=== PATIENT | female | born 1985 | race Caucasian/White ===

== ENCOUNTER 2021-02-11 10:09 | Inpatient (IN) ==
[2021-02-11] MEDS ORDERED: IOPAMIDOL 100 ML BOTTLE IV ONE (10:10)
[2021-02-11] MEDS ORDERED: 0.9 % SODIUM CHLORIDE 1,000 ML IV ONE (10:20)
[2021-02-11] MEDS ORDERED: ACETAMINOPHEN 325 MG TABLET PO ONE ×2 (10:26→17:34)
--- NOTE | 2021-02-11 10:26 | Emergency Department Note ---
SOB HPI General Chief Complaint: Shortness of Breath/Dyspnea Stated Complaint: shortness of breath, low O2 sats Time Seen by Provider: 02/11/21 10:20 Source: patient Mode of arrival: wheelchair Limitations: no limitations History of Present Illness HPI Narrative: 35-year-old female with past medical history of migraines presenting with shortness of breath. She was seen in the ED 2 days ago for shortness of breath and was diagnosed with bilateral pneumonia. Her rapid Covid test was negative at that time. Her vital signs were stable and she was discharged on antibiotics. She states yesterday she was doing better but today the shortness of breath got significantly worse. She endorses a nonproductive cough, chest pain when taking a deep breath, and chills. Denies neck pain, leg swelling, hemoptysis, abdominal pain, vomiting, or dysuria. She has received both doses of the Moderna COVID vaccine, the most recent dose given January 14. Non-smoker. No oral contraceptive use, she has a Mirena IUD. Denies any prior history of pulmonary problems. No history of DVT or PE. No prior cardiac history. She was satting in the 40s on room air on arrival to the ED. Related Data Home Medications Medication Instructions Recorded Confirmed progesterone micronized 200 mg 200 mg PO QHS 09/26/20 02/11/21 capsule testosterone 30 mg/actuation (1.5 1 pump TOPICAL QDAY 09/26/20 02/11/21 mL) transderm solution metered pump thyroid (pork) 15 mg tablet 40 mg PO QDAY tab 09/26/20 02/11/21 budesonide 9 mg capsule,extended 9 mg PO QAM 02/09/21 02/11/21 release mesalamine 1.2 gram tablet,delayed 1.2 g PO QID tab 02/09/21 02/11/21 release Previous Rx's Medication Instructions Recorded buspirone 10 mg tablet 10 mg PO BID PRN #30 tab 09/26/20 hydrocortisone acetate 25 mg 25 mg VT BID PRN #12 ea 09/26/20 rectal suppository escitalopram oxalate 20 mg tablet See Rx Instructions .ROUTE 11/28/20 .COMPLEX #30 tab hydrocodone-acetaminophen 1 tab PO Q4H PRN #20 tab 12/03/20 ondansetron HCl [Zofran] 4 mg PO Q8H PRN #20 tab 12/03/20 zolpidem 5 mg tablet 5 mg PO QHS PRN #60 tab 02/06/21 amoxicillin-pot clavulanate 1 tab PO BID 10 Days #20 tab 02/09/21 [Augmentin] azithromycin [Zithromax Z-Renny] 250 mg PO QDAY #6 tab 02/09/21 Allergies Allergy/AdvReac Type Severity Reaction Status Date / Time No Known Drug Allergies Allergy Verified 02/11/21 11:12 Review of Systems ROS ROS Narrative: Narrative: Constitutional: Reports fever and chills Eyes: Denies vision change ENT ED: Denies ear pain and throat pain Cardiovascular: Reports chest pain; Denies palpitations and edema Respiratory: Reports shortness of breath and cough; Denies hemoptysis Gastrointestinal: Denies abdominal pain, nausea and vomiting Genitourinary: Denies dysuria and frequency Musculoskeletal: Denies back pain and joint swelling Integumentary: Denies rash and lesions Neurological: Denies headache and weakness Psychiatric: Denies anxiety and depression Endocrine: Denies fatigue and heat or cold intolerance Hematological/Lymphatic: Denies easy bleeding and easy bruising PFSH Narrative Patient History Narrative: Narrative: Medical/Surgical/Family History All Active Problems (Updated 02/11/21 @ 16:34 by Yeison Esparza MD) Bilateral pneumonia (Acute) Pneumonia (Acute) Tachycardia (Acute) Kidney stone (Acute) Folliculitis (Acute) Bleeding internal hemorrhoids (Acute) Headache (Acute) Nausea (Acute) Close exposure to COVID-19 virus (Acute) Anxiety (Chronic ~07/2014) Frequent UTI (Chronic) Encounter for surveillance of contraceptive pills (Chronic) Need vaccination-viral disease (Chronic) Symptomatic tachycardia (Chronic) Hyperlipidemia (Chronic) Chronic migraine without aura, intractable, with status migrainosus (Chronic) Well adult exam (Chronic) Hypothyroidism (Chronic) Fatigue (Chronic) Insomnia (Chronic) Depressed (Chronic) Nevus, atypical (Chronic) Weight gain (Chronic) Encounter for screening for malignant neoplasm of cervix (Chronic) Bladder spasm (Chronic) Candidiasis of vulva and vagina (Chronic) Chronic sinusitis, unspecified (Chronic) SOB (shortness of breath) (Chronic) Acute pneumonia (Chronic) Bronchospasm (Chronic) Medical History Acute pneumonia Anxiety (~07/2014) Bladder spasm Bronchospasm Candidiasis of vulva and vagina Chronic migraine without aura, intractable, with status migrainosus Chronic sinusitis, unspecified Depressed Encounter for screening for malignant neoplasm of cervix Encounter for surveillance of contraceptive pills Fatigue Frequent UTI Hyperlipidemia Hypothyroidism Insomnia Need vaccination-viral disease Nevus, atypical SOB (shortness of breath) Symptomatic tachycardia Viral syndrome Weight gain Well adult exam Surgical History History of tonsillectomy and adenoidectomy Family History Father Asthma H/O ETOH abuse Grandfather Cancer Social History Smoking Status: Never smoker Alcohol Intake Frequency: holiday/special occasion only Substance Use: does not use Exam Narrative Narrative: Narrative: General Limitations: no limitations General appearance: Present alert and other (in moderate respiratory distress) Head Head: Present atraumatic and normocephalic Eye Eye: Present normal appearance, PERRL and EOMI; Absent scleral icterus and conjunctival injection ENT ENT: Present normal oropharynx and mucous membranes moist Neck Neck: Present full ROM and trachea midline; Absent meningismus, lymphadenopathy and thyromegaly Chest Chest: Present symmetric chest wall rise Respiratory Respiratory: Present respiratory distress and other (coarse BS bilaterally); Absent wheezes, stridor, accessory muscle use and prolonged expiratory phase Cardiovascular Cardiovascular: Present normal rhythm and tachycardia; Absent systolic murmur and diastolic murmur Adbominal Abdominal: Present soft; Absent distention, tenderness, guarding, rebound, rigidity, organomegaly and mass Extremities Extremities: Absent pedal edema, pretibial edema and calf tenderness Back Back: Absent CVA tenderness (R), CVA tenderness (L) and spinous process tenderness Neurological Neurological: Present alert and oriented X3 Psychiatric Psychiatric: Present normal affect and normal mood Skin Skin: Present warm (WNL) and dry Course Consultations Consultation #1: Dr. Blankenship, hospitalist Time: 15:20 Vital Signs Vital signs: Vital Signs Temperature 101.4 F H 02/11/21 10:10 Pulse Rate 128 H 02/11/21 10:10 Respiratory Rate 50 H 02/11/21 10:10 Blood Pressure 118/82 02/11/21 10:10 Pulse Oximetry (%) 45 L 02/11/21 10:10 Temperature 98.9 F 02/11/21 16:04 Pulse Rate 114 H 02/11/21 16:04 Respiratory Rate 47 H 02/11/21 16:04 Blood Pressure 108/77 02/11/21 16:04 Pulse Oximetry (%) 93 02/11/21 16:04 MDM MDM Narrative Medical decision making narrative: 35-year-old female presenting with shortness of breath. Hypoxic, tachypneic, and in moderate respiratory distress on arrival. She was placed on O2 via facemask with improvement in sats. She is febrile and tachycardic. Will obtain labs, blood cultures, chest x-ray, and CT chest. We will continue to monitor. Labs notable for hypokalemia which was repleted. CT chest shows severe bilateral pneumonia without evidence of PE. Rapid Covid test is negative. Blood culture sent. Patient's oxygen saturations are stable on O2 via facemask. 1 g IV Rocephin and 500 mg IV azithromycin ordered. Patient endorsed to Dr. Blankenship, hospitalist, for admission. Lab Data Lab results reviewed: Yes I reviewed the patient's lab results. Result diagrams: 02/11/21 10:53 02/11/21 10:53 Labs: Lab Results 02/11/21 02/11/21 02/11/21 Range/Units 10:38 10:52 10:52 WBC (4.5-11.0) K/mcL RBC (3.59-5.38) M/mcL Hgb (11.2-15.7) g/dL Hct (34.1-44.9) % MCV (80.0-100.0) fL MCH (26.0-34.0) pg MCHC (31.0-36.0) g/dL RDW (11.5-14.5) % Plt Count (140-440) K/mcL MPV (7.4-10.4) fL Seg Neutrophils % (38-78) % Band Neutrophils % (0-10) % Lymphocytes % (15-49) % Monocytes % (Manual) (1-12) % Platelet Estimate (Normal) RBC Morphology (Normal) PT (11.9-14.5) sec INR (0.9-1.1) APTT (20.0-37.0) sec VBG Lactic Acid 1.5 (0.5-2.0) mmol/L Sodium (133-145) mmol/L Potassium (3.3-5.1) mmol/L Chloride (96-108) mmol/L Carbon Dioxide (22-30) mmol/L Anion Gap (8.0-16.0) BUN (6-20) mg/dL Creatinine (0.6-1.1) mg/dL GFR Calculation Glucose (70-105) mg/dL Calcium (8.6-10.4) mg/dL Magnesium (1.6-2.5) mg/dL Total Bilirubin (0.1-1.0) mg/dL AST (<32) U/L ALT (<40) U/L Alkaline Phosphatase (39-117) U/L Troponin T < 0.01 (<0.03) ng/mL NT-Pro-B Natriuret Pep (<125.0) pg/mL Total Protein (5.9-8.4) gm/dL Albumin (3.2-5.2) gm/dL Globulin (2.2-3.7) gm/dL Albumin/Globulin Ratio (1.0-2.3) Procalcitonin 0.68 H (<0.10) ng/mL 02/11/21 02/11/21 02/11/21 Range/Units 10:53 10:53 10:53 WBC 7.5 (4.5-11.0) K/mcL RBC 3.93 (3.59-5.38) M/mcL Hgb 12.7 (11.2-15.7) g/dL Hct 35.9 (34.1-44.9) % MCV 91.3 (80.0-100.0) fL MCH 32.3 (26.0-34.0) pg MCHC 35.4 (31.0-36.0) g/dL RDW 11.9 (11.5-14.5) % Plt Count 176 (140-440) K/mcL MPV 10.5 H (7.4-10.4) fL Seg Neutrophils % 72 (38-78) % Band Neutrophils % 24 H (0-10) % Lymphocytes % 1 L (15-49) % Monocytes % (Manual) 3 (1-12) % Platelet Estimate Normal (Normal) RBC Morphology Normal (Normal) PT 14.4 (11.9-14.5) sec INR 1.1 (0.9-1.1) APTT 39.7 H (20.0-37.0) sec VBG Lactic Acid (0.5-2.0) mmol/L Sodium 136 (133-145) mmol/L Potassium 2.9 L* (3.3-5.1) mmol/L Chloride 103 (96-108) mmol/L Carbon Dioxide 18 L (22-30) mmol/L Anion Gap 15.0 (8.0-16.0) BUN 12 (6-20) mg/dL Creatinine 0.6 (0.6-1.1) mg/dL GFR Calculation 118 Glucose 116 H (70-105) mg/dL Calcium 8.4 L (8.6-10.4) mg/dL Magnesium 1.8 (1.6-2.5) mg/dL Total Bilirubin 0.6 (0.1-1.0) mg/dL AST 24 (<32) U/L ALT 21 (<40) U/L Alkaline Phosphatase 77 (39-117) U/L Troponin T (<0.03) ng/mL NT-Pro-B Natriuret Pep 2000.0 H (<125.0) pg/mL Total Protein 6.1 (5.9-8.4) gm/dL Albumin 3.6 (3.2-5.2) gm/dL Globulin 2.5 (2.2-3.7) gm/dL Albumin/Globulin Ratio 1.4 (1.0-2.3) Procalcitonin (<0.10) ng/mL ED POC Tests ED POC Tests: NOLAN - SARS Antigen Negative HCG POC Results Negative Radiology Data Radiology results reviewed: Yes I reviewed the patient's radiology results. Radiology results narrative: Ordering Physician: Yeison Esparza M.D. Date of Service: 02/11/21 Procedure(s): CT angio chest Accession Number(s): [id number] History: Dyspnea, hypoxia, pneumonia TECHNIQUE: Following injection of intravenous nonionic contrast the chest was imaged during the pulmonary arterial phase of 2.5 mm intervals. Sagittal, coronal and axial MIPS images were created. The radiation exposure was limited using dose reduction technology. FINDINGS: The pulmonary arteries are normal without evidence of emboli. There are severe widespread consolidating alveolar infiltrates throughout both lungs. This has a random mosaic distribution. There are numerous air bronchograms. There is relative sparing of the lung bases. The greatest consolidation is around the mariel. Very small bilateral layering pleural effusions are present. There may be a few reactive lymph nodes in the mariel bilaterally. No enlarged mediastinal lymph node is seen. The trachea and bronchi are normal with no mucus plugging or evidence of a mass. The heart is normal in size and contour. Aorta is normal in caliber. IMPRESSION: Severe widespread bilateral pneumonia No evidence pulmonary emboli Small layering bilateral pleural effusions Dr. Esparza was called with the report Interpreted and Authenticated by: Magdaleno Aquino 02/11/21 EKG Data EKG #1: EKG attestation: Yes I reviewed and interpreted this EKG. and Yes There are no EKG findings of acute coronary syndrome EKG results narrative: Sinus tachycardia at [address] elevation or depression. No T wave inversions. Interpretation: no acute changes Pulse Oximetry Data Pulse Ox %: 45 Interpretation: On room air. Placed on O2 via facemask with improvement to 94%. Discharge Plan Patient/Caregiver Discharge Instructions Pt seen by [employer] MACHINE/PA only: No Clinical Impression: Bilateral pneumonia Patient Disposition: Xfer As Inpt ([facility]) Condition: Fair Discharge Date/Time: 02/11/21 16:16
[2021-02-11 11:52] LABS: Hematocrit 35.9 % (34.1-44.9); Hemoglobin 12.7 g/dL (11.2-15.7); Mean Cell Volume 91.3 fL (80.0-100.0); Mean Corpuscular HGB Conc 35.4 g/dL (31.0-36.0); Mean Platelet Volume 10.5 fL (7.4-10.4); Platelet Count 176 K/mcL (140-440); RBC 3.93 M/mcL (3.59-5.38); Red Cell Distribution Width 11.9 % (11.5-14.5); WBC 7.5 K/mcL (4.5-11.0)
[2021-02-11] MEDS ORDERED: cefTRIAXone 1 GM VIAL IV ONE (12:37)
[2021-02-11] MEDS ORDERED: AZITHROMYCIN 500 MG in DEXTROSE 5% IN WATER 250 ML IV ONE (12:37)
[2021-02-11 13:08] LABS: INR 1.1 (0.9-1.1); Partial Thromboplastin Time 39.7 sec (20.0-37.0); Prothrombin Time 14.4 sec (11.9-14.5)
[2021-02-11 13:10] LABS: ALT/SGPT 21 U/L (<40); AST/SGOT 24 U/L (<32); Albumin 3.6 gm/dL (3.2-5.2); Albumin/Globulin Ratio 1.4 (1.0-2.3); Alkaline Phosphatase 77 U/L (39-117); Bilirubin,Total 0.6 mg/dL (0.1-1.0); Blood Urea Nitrogen 12 mg/dL (6-20); Calcium 8.4 mg/dL (8.6-10.4); Carbon Dioxide 18 mmol/L (22-30); Chloride 103 mmol/L (96-108); Globulin 2.5 gm/dL (2.2-3.7); Glomerular Filtration Rate 118; Glucose 116 mg/dL (70-105)
[2021-02-11] MEDS ORDERED: POTASSIUM CHLORIDE 20 MEQ in DEXTROSE 5% IN WATER 250 ML IV ONE (13:13)
[2021-02-11 13:32] LABS: Band Neutrophils % 24 % (0-10); Lymphocytes % 1 % (15-49); Monocytes % (Manual) 3 % (1-12); Platelet Estimate NORMAL (Normal); RBC Morphology NORMAL (Normal); Segmented Neutrophils % 72 % (38-78)
--- NOTE | 2021-02-11 14:54 | Cat Scan Report ---
History: Dyspnea, hypoxia, pneumonia TECHNIQUE: Following injection of intravenous nonionic contrast the chest was imaged during the pulmonary arterial phase of 2.5 mm intervals. Sagittal, coronal and axial MIPS images were created. The radiation exposure was limited using dose reduction technology. FINDINGS: The pulmonary arteries are normal without evidence of emboli. There are severe widespread consolidating alveolar infiltrates throughout both lungs. This has a random mosaic distribution. There are numerous air bronchograms. There is relative sparing of the lung bases. The greatest consolidation is around the mairel. Very small bilateral layering pleural effusions are present. There may be a few reactive lymph nodes in the mariel bilaterally. No enlarged mediastinal lymph node is seen. The trachea and bronchi are normal with no mucus plugging or evidence of a mass. The heart is normal in size and contour. Aorta is normal in caliber. IMPRESSION: Severe widespread bilateral pneumonia No evidence pulmonary emboli Small layering bilateral pleural effusions Dr. Esparza was called with the report Interpreted and Authenticated by: Magdaleno Aquino 02/11/21
[2021-02-11] MEDS ORDERED: LACTULOSE 20 GM/30 ML ORAL.SOL PO PRN (16:24)
[2021-02-11] MEDS ORDERED: SENNOSIDES 1 TABLET PO PRN (16:24)
[2021-02-11] MEDS ORDERED: busPIRone 15 MG TABLET PO PRN (16:24)
[2021-02-11] MEDS ORDERED: ONDANSETRON 4 MG/2 ML VIAL IV PRN (16:24)
[2021-02-11] MEDS ORDERED: ZOLPIDEM 5 MG TABLET PO PRN (16:24)
[2021-02-11] MEDS ORDERED: LORazepam 2 MG/ML VIAL IV PRN ×2 (17:03→18:00)
[2021-02-11] MEDS ORDERED: LORazepam 2 MG/ML VIAL ONE (17:09)
[2021-02-11] MEDS: ACETAMINOPHEN 325 MG TABLET PO PRN (17:30)
[2021-02-11] MEDS ORDERED: REMDESIVIR 200 MG in 0.9 % SODIUM CHLORIDE 250 ML IV ONE (18:00)
[2021-02-11] MEDS ORDERED: DEXMEDETOMIDINE 400 MCG in PREMIX 1 BAG IV SCH (18:00)
[2021-02-11] MEDS: DEXMEDETOMIDINE 400 MCG in PREMIX 1 BAG IV SCH (18:05)
--- NOTE | 2021-02-11 18:13 | Internal Med History&Physical ---
HPI History of Present Illness Patient information: Note initiated : 02/11/21 at 6:13 pm Service Date, if different from initiated Date: [] Patient: Cheyanne Moody a 35 y/o F admitted on 02/11/21 for shortness of breath, low O2 sats. Chief Complaint: dyspnea History of present illness: Ms. Moody is a 35 year old F with a history of recently diagnosed ulcerative proctitis, history of COVID-19 last year, now fully vaccinated with her last dose early in January. She presents to the emergency department for the second time in 3 days with dyspnea. She was seen in the ER 2 days ago with shortness of breath, chest film showed bilateral pneumonias. She received IV fluids and antibiotics and was discharged on Augmentin and azithromycin. Covid rapid antigen as well as Ronald PCR were negative. She felt a bit better yesterday, but today was feeling worse and represents to the ED. Oxygen saturations were in the 50% range on room air, this improved with facemask and she was on a nonrebreather when I see her. Repeat evaluation in the ED showed significant bilateral groundglass opacities on CTA without pulmonary embolism. Radiograph redemonstrated bilateral infiltrates. White count was 7.5 (decreased from 15,002 days previously), but with a 24% bandemia. Sodium 136, potassium low at 2.9. Normal renal function. Procalcitonin elevated at 0.68. proBNP 2000 and lactate was normal. Repeat rapid antigen for influenza A and B and SARS-CoV-2 were negative. Repeat Ronald PCR was negative for SARS-CoV-2. Patient had been experiencing diarrhea as well as a generally nonproductive cough. She is becoming more dyspneic, particularly with exertion. She is complaining of a sore throat and headache along with chills and has had fever. She has anterior chest pain with coughing and hurts with touch to the chest wall. The patient is being admitted for further treatment of bilateral pneumonia, rule out COVID-19. Constitutional Constitutional: Present chills, fatigue, fever(s), headache(s), malaise and weakness EENT Eyes: Absent change in vision Nose, mouth and throat: Present headache(s), sinus pressure and sore throat Cardiovascular Cardiovascular: Present as per HPI Respiratory Respiratory: Present cough, dyspnea on exertion, pain on inspirtation and pain with cough; Absent hemoptysis and wheezing Gastrointestinal Gastrointestinal: Present diarrhea; Absent abdominal pain, nausea and vomiting Genitourinary Genitourinary: Absent dysuria Musculoskeletal Musculoskeletal: Absent joint swelling and myalgias Integumentary Integumentary: Absent rash Neurological Neurological: Present headache(s); Absent focal weakness Hematologic/Lymphatic Hematologic/Lymphatic: Absent easy bleeding and easy bruising PFSH PFSH All Active Problems (Updated 02/11/21 @ 20:09 by Kellie Blankenship MD) Ulcerative proctitis (Acute) Bilateral pneumonia (Acute) Pneumonia (Acute) Tachycardia (Acute) Kidney stone (Acute) Folliculitis (Acute) Bleeding internal hemorrhoids (Acute) Headache (Acute) Nausea (Acute) Close exposure to COVID-19 virus (Acute) Anxiety (Chronic ~07/2014) Frequent UTI (Chronic) Encounter for surveillance of contraceptive pills (Chronic) Need vaccination-viral disease (Chronic) Symptomatic tachycardia (Chronic) Hyperlipidemia (Chronic) Chronic migraine without aura, intractable, with status migrainosus (Chronic) Well adult exam (Chronic) Hypothyroidism (Chronic) Fatigue (Chronic) Insomnia (Chronic) Depressed (Chronic) Nevus, atypical (Chronic) Weight gain (Chronic) Encounter for screening for malignant neoplasm of cervix (Chronic) Bladder spasm (Chronic) Candidiasis of vulva and vagina (Chronic) Chronic sinusitis, unspecified (Chronic) SOB (shortness of breath) (Chronic) Acute pneumonia (Chronic) Bronchospasm (Chronic) Medical History (Updated 02/11/21 @ 20:09 by Kellie Blankenship MD) Acute pneumonia Anxiety (~07/2014) Bladder spasm Bronchospasm Candidiasis of vulva and vagina Chronic migraine without aura, intractable, with status migrainosus Chronic sinusitis, unspecified Depressed Encounter for screening for malignant neoplasm of cervix Encounter for surveillance of contraceptive pills Fatigue Frequent UTI Hyperlipidemia Hypothyroidism Insomnia Need vaccination-viral disease Nevus, atypical SOB (shortness of breath) Symptomatic tachycardia Ulcerative proctitis Weight gain Well adult exam Surgical History History of tonsillectomy and adenoidectomy Family History Father Asthma H/O ETOH abuse Grandfather Cancer Social History (Updated 09/26/20 @ 16:35 by Aramis Cerrato CMA) marital status: occupational status: employed occupation: RN at [employer] physical activity: other frequency: 5-6 times per week smoking status: Never smoker alcohol intake frequency: holiday/special occasion only substance use type: does not use seatbelt use: always MEDS/ALLERGIES Home Medications and Allergies Home Medications Medication Instructions Recorded Confirmed Type buspirone 10 mg tablet 10 mg PO BID PRN #30 tab 09/26/20 02/11/21 Rx hydrocortisone acetate 25 mg 25 mg SC BID PRN #12 ea 09/26/20 02/09/21 Rx rectal suppository progesterone micronized 200 mg 200 mg PO QHS 09/26/20 02/11/21 History capsule testosterone 30 mg/actuation (1.5 1 pump TOPICAL QDAY 09/26/20 02/11/21 History mL) transderm solution metered pump thyroid (pork) 15 mg tablet 40 mg PO QDAY tab 09/26/20 02/11/21 History escitalopram oxalate 20 mg tablet See Rx Instructions .ROUTE 11/28/20 02/11/21 Rx .COMPLEX #30 tab hydrocodone-acetaminophen 1 tab PO Q4H PRN #20 tab 12/03/20 02/09/21 Rx ondansetron HCl [Zofran] 4 mg PO Q8H PRN #20 tab 12/03/20 02/09/21 Rx zolpidem 5 mg tablet 5 mg PO QHS PRN #60 tab 02/06/21 02/11/21 Rx amoxicillin-pot clavulanate 1 tab PO BID 10 Days #20 tab 02/09/21 02/11/21 Rx [Augmentin] azithromycin [Zithromax Z-Renny] 250 mg PO QDAY #6 tab 02/09/21 02/11/21 Rx budesonide 9 mg capsule,extended 9 mg PO QAM 02/09/21 02/11/21 History release mesalamine 1.2 gram tablet,delayed 1.2 g PO QID tab 02/09/21 02/11/21 History release Allergies Allergy/AdvReac Type Severity Reaction Status Date / Time No Known Drug Allergies Allergy Verified 02/11/21 20:07 EXAM Constitutional Vitals: Temp Pulse Resp BP Pulse Ox 101.8 F H 79 46 H 125/73 77 L 02/11/21 18:00 02/11/21 18:00 02/11/21 18:00 02/11/21 18:00 02/11/21 18:00 GENERAL: Alert, oriented, in moderate respiratory distress. Cooperative, appears stated age. HEENT: Pupils equal at 3 mm, conjunctiva clear, no scleral icterus. Hearing grossly intact. Oropharynx with moist mucous membranes, tongue midline. NECK: Supple without meningismus, no thyromegaly RESPIRATORY: Bilateral crackles, respirations are moderately labored, no wheezes, no rhonchi CARDIOVASCULAR: Tachycardic, regular, no murmur gallop or rub. No peripheral edema. Carotid pulses 2+. GI: Abdomen soft, nontender, no guarding or rebound. Bowel sounds are present. MUSCULOSKELETAL: No joint erythema or swelling, normal range of motion in all extremities. SKIN: Intact, warm, dry. No lesions. Skin turgor normal. NEUROLOGIC: Cranial nerves II through XII grossly intact. Muscle mass normal. Strength 5/5 in the upper and lower extremities. Sensation intact to light touch bilaterally. PSYCHIATRIC: Alert, oriented x3, mood and affect are congruent to the current situation, normal insight. DATA Data Completed and Pending Labs: Labs from last 24 hours 02/11/21 02/11/21 02/11/21 16:43 16:43 10:53 WBC RBC Hgb Hct MCV MCH MCHC RDW Plt Count MPV Seg Neutrophils % Band Neutrophils % Lymphocytes % Monocytes % (Manual) Platelet Estimate RBC Morphology PT INR APTT VBG Lactic Acid Sodium Potassium Chloride Carbon Dioxide Anion Gap BUN Creatinine GFR Calculation Glucose Calcium Magnesium Total Bilirubin AST ALT Alkaline Phosphatase Troponin T NT-Pro-B Natriuret Pep Total Protein Albumin Globulin Albumin/Globulin Ratio Procalcitonin Ur L.pneumophila Ag Pending Mycoplasma pneumon IgG Pending Mycoplasma pneumon IgM Pending Ur Strep pneumoniae Ag Negative 02/11/21 02/11/21 02/11/21 10:53 10:53 10:53 WBC 7.5 RBC 3.93 Hgb 12.7 Hct 35.9 MCV 91.3 MCH 32.3 MCHC 35.4 RDW 11.9 Plt Count 176 MPV 10.5 H Seg Neutrophils % 72 Band Neutrophils % 24 H Lymphocytes % 1 L Monocytes % (Manual) 3 Platelet Estimate Normal RBC Morphology Normal PT 14.4 INR 1.1 APTT 39.7 H VBG Lactic Acid Sodium 136 Potassium 2.9 L* Chloride 103 Carbon Dioxide 18 L Anion Gap 15.0 BUN 12 Creatinine 0.6 GFR Calculation 118 Glucose 116 H Calcium 8.4 L Magnesium 1.8 Total Bilirubin 0.6 AST 24 ALT 21 Alkaline Phosphatase 77 Troponin T NT-Pro-B Natriuret Pep 2000.0 H Total Protein 6.1 Albumin 3.6 Globulin 2.5 Albumin/Globulin Ratio 1.4 Procalcitonin Ur L.pneumophila Ag Mycoplasma pneumon IgG Mycoplasma pneumon IgM Ur Strep pneumoniae Ag 02/11/21 02/11/21 02/11/21 10:52 10:52 10:38 WBC RBC Hgb Hct MCV MCH MCHC RDW Plt Count MPV Seg Neutrophils % Band Neutrophils % Lymphocytes % Monocytes % (Manual) Platelet Estimate RBC Morphology PT INR APTT VBG Lactic Acid 1.5 Sodium Potassium Chloride Carbon Dioxide Anion Gap BUN Creatinine GFR Calculation Glucose Calcium Magnesium Total Bilirubin AST ALT Alkaline Phosphatase Troponin T < 0.01 NT-Pro-B Natriuret Pep Total Protein Albumin Globulin Albumin/Globulin Ratio Procalcitonin 0.68 H Ur L.pneumophila Ag Mycoplasma pneumon IgG Mycoplasma pneumon IgM Ur Strep pneumoniae Ag Impressions Impressions: EKG: Sinus tachycardia 117, no acute injury pattern Imaging and Cardiology CT scan - chest: Status: image reviewed by me Additional comments: IMPRESSION: Severe widespread bilateral pneumonia No evidence pulmonary emboli Small layering bilateral pleural effusions A/P Narrative A/P Narrative: 35-year-old female prior history of Covid and fully vaccinated presents with several days of worsening dyspnea is found to have bilateral extensive pneumonia. Initially on nonrebreather, after arrival in the PCU, required escalation to HHFNC and subsequently BiPAP. 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, works as a nurse -Recent diagnosis of ulcerative proctitis, may be mildly immunosuppressed -After discussion of risks and benefits, will begin treatment for COVID-19: Remdesivir and dexamethasone -We will cover for bacterial pathogens, broad-spectrum as well as for atypicals Acute respiratory failure with hypoxia -Secondary to pneumonia/ARDS -Initially requiring nonrebreather, subsequently required HHFNC, then BiPAP -Significant anxiety associated with dyspnea, improved with Precedex Hypokalemia -Repleting Ulcerative proctitis -Diagnosed on colonoscopy early January -On oral budesonide and mesalamine Plan: Inpatient admission Respiratory support, currently on BiPAP Low threshold to intubate Remdesivir and dexamethasone, follow-up repeat SARS-CoV-2 PCR Vancomycin and cefepime for broad bacterial coverage Continue azithromycin started in the ED for atypical coverage Follow-up mycoplasma serology Follow-up Legionella urinary antigen Follow-up respiratory viral panels (for influenza, RSV, adenovirus, human metapneumovirus, parainfluenza viruses, rhinovirus) Guaifenesin and codeine for cough Replete potassium Trend white count and procalcitonin Trend CRP Continue budesonide and mesalamine Prophylaxis: Enoxaparin CODE STATUS: Full code Time Spent With Patient Time: Critical care time, managing acute respiratory failure and ARDS including assessment and reassessment at bedside, consultation with specialist, reviewing with nursing and respiratory therapy while immediately available on the unit: 45 minutes.
[2021-02-11] MEDS: 0.9 % SODIUM CHLORIDE 1,000 ML IV SCH (18:16)
[2021-02-11] MEDS: 0.9 % SODIUM CHLORIDE 250 ML IV SCH (18:18)
[2021-02-11] MEDS: DEXAMETHASONE 10 MG/ML VIAL IV SCH (18:21)
[2021-02-11] MEDS ORDERED: VANCOMYCIN PER PHARMACY IV ONE (19:27)
[2021-02-11] MEDS: 0.9 % SODIUM CHLORIDE 10 ML SYRINGE IV SCH ×2 (20:00→22:00)
[2021-02-11] MEDS: Progesterone Micronized 200 mg capsule PO SCH (20:29)
[2021-02-11] MEDS: MESALAMINE 500 MG CAPSULE PO SCH ×2 (20:32→21:07)
[2021-02-11] MEDS: VANCOMYCIN 1,000 MG in 0.9 % SODIUM CHLORIDE 250 ML IV SCH (21:08)
[2021-02-11] MEDS: CEFEPIME 2 GM VIAL IV SCH (21:53)
[2021-02-11] MEDS: guaiFENesin/CODEINE 10 ML UDC PO PRN (21:53)
[2021-02-12] MEDS: 0.9 % SODIUM CHLORIDE 1,000 ML IV SCH ×5 (02:26→21:15)
[2021-02-12] MEDS: DEXMEDETOMIDINE 400 MCG in PREMIX 1 BAG IV SCH ×2 (05:08→16:51)
[2021-02-12] MEDS: guaiFENesin/CODEINE 10 ML UDC PO PRN ×3 (05:37→17:08)
[2021-02-12 06:46] LABS: Basophils # (Auto) 0.01 K/mcL (0.00-0.30); Basophils % (Auto) 0.2 % (0.0-2.0); Eosinophils # (Auto) 0 K/mcL (0.00-0.70); Eosinophils % (Auto) 0 % (0.0-7.0); Hematocrit 34.7 % (34.1-44.9); Hemoglobin 11.2 g/dL (11.2-15.7); Lymphocytes # (Auto) 0.45 K/mcL (1.50-4.80); Lymphocytes % (Auto) 8.1 % (15.5-49.0); Mean Cell Volume 96.9 fL (80.0-100.0); Mean Corpuscular HGB Conc 32.3 g/dL (31.0-36.0); Mean Platelet Volume 10.5 fL (7.4-10.4); Monocytes # (Auto) 0.41 K/mcL (0.10-0.90); Monocytes % (Auto) 7.4 % (1.0-12.0); Neutrophils % (Auto) 84.3 % (38.0-78.0); Platelet Count 165 K/mcL (140-440); RBC 3.58 M/mcL (3.59-5.38); Red Cell Distribution Width 12.4 % (11.5-14.5); WBC 5.5 K/mcL (4.5-11.0)
[2021-02-12 07:05] LABS: ALT/SGPT 17 U/L (<40); AST/SGOT 22 U/L (<32); Albumin/Globulin Ratio 1.3 (1.0-2.3); Alkaline Phosphatase 67 U/L (39-117); Bilirubin,Direct < 0.2 mg/dL (0-0.3); Bilirubin,Total 0.4 mg/dL (0.1-1.0); Blood Urea Nitrogen 9 mg/dL (6-20); Calcium 7.7 mg/dL (8.6-10.4); Carbon Dioxide 18 mmol/L (22-30); Chloride 108 mmol/L (96-108); Globulin 2.3 gm/dL (2.2-3.7); Glomerular Filtration Rate 135; Glucose 140 mg/dL (70-105); Lactate Dehydrogenase 273 U/L (135-225); Phosphorous 2.4 mg/dL (2.5-4.5); Triglycerides 100 mg/dL (<150); Uric Acid 2.7 mg/dL (2.5-8.0)
[2021-02-12] MEDS: 0.9 % SODIUM CHLORIDE 10 ML SYRINGE IV SCH ×4 (07:21→22:24)
[2021-02-12] MEDS: PANTOPRAZOLE 40 MG TABLET PO SCH (07:21)
[2021-02-12] MEDS ORDERED: LEVOTHYROXINE 100 MCG TABLET PO SCH (07:30)
[2021-02-12] MEDS ORDERED: VANCOMYCIN PER PHARMACY IV SCH (07:45)
[2021-02-12] MEDS: BENZOCAINE/MENTHOL 1 LOZENGE PO PRN ×2 (07:51→17:07)
[2021-02-12] MEDS: 0.9 % SODIUM CHLORIDE 250 ML IV SCH ×2 (07:53→19:59)
[2021-02-12] MEDS ORDERED: POTASSIUM PHOSPHATE 20 MEQ in DEXTROSE 5% IN WATER 250 ML IV ONE (08:16)
--- NOTE | 2021-02-12 08:19 | Internal Med Progress Note ---
SUBJECTIVE Subjective Patient information: Note initiated : 02/12/21 at 8:19 am Service Date, if different from initiated Date: [] Patient: Cheyanne Moody 35 y/o F admitted on 02/11/21 for shortness of breath, low O2 sats. Chief Complaint: f/u PNA, ARDS Interval history: Ms. Moody is a 35 year old F with a history of recently diagnosed ulcerative proctitis, history of COVID-19 last year, now fully vaccinated with her last dose early in January. She presents to the emergency department for the second time in 3 days with dyspnea. She was seen in the ER 2 days ago with shortness of breath, chest film showed bilateral pneumonias. She received IV fluids and antibiotics and was discharged on Augmentin and azithromycin. Covid rapid antigen as well as Ronald PCR were negative. She felt a bit better yesterday, but today was feeling worse and represents to the ED. Oxygen saturations were in the 50% range on room air, this improved with facemask and she was on a nonrebreather when I see her. Repeat evaluation in the ED showed significant bilateral groundglass opacities on CTA without pulmonary embolism. Radiograph redemonstrated bilateral infiltrates. White count was 7.5 (decreased from 15,002 days previously), but with a 24% bandemia. Sodium 136, potassium low at 2.9. Normal renal function. Procalcitonin elevated at 0.68. proBNP 2000 and lactate was normal. Repeat rapid antigen for influenza A and B and SARS-CoV-2 were negative. Repeat Ronald PCR was negative for SARS-CoV-2. Patient had been experiencing diarrhea as well as a generally nonproductive cough. She is becoming more dyspneic, particularly with exertion. She is complaining of a sore throat and headache along with chills and has had fever. She has anterior chest pain with coughing and hurts with touch to the chest wall. The patient is being admitted for further treatment of bilateral pneumonia, rule out COVID-19. 02/12: Patient is stable on BiPAP overnight, anxiety significantly managed with Precedex. She is tolerating that well. She is awake and alert and feeling calmer this morning. BiPAP is 16/8 at 45% FiO2. Procalcitonin remains elevated today. RVP negative. Urinary Legionella and mycoplasma serology pending. [place] SARS-CoV-2 assay pending. Constitutional Vitals: Vital Signs Temp Pulse Resp BP Pulse Ox 98.6 F 95 H 22 121/79 99 02/12/21 08:00 02/12/21 08:00 02/12/21 08:00 02/12/21 08:00 02/12/21 08:00 Period Temp Pulse Resp BP Sys/[place] Pulse Ox Last 24 Hr 97.9 F-103.0 F 54-132 16-63 92-140/64-100 45-100 Intake and Output 02/11/21 02/12/21 02/12/21 21:59 05:59 13:59 Intake Total 1784 1553 198 Output Total 475 425 Balance 1309 1128 198 Weight 151 lb 12.8 oz 159 lb 6.4 oz Intake & Output: Intake & Output 02/11/21 02/12/21 02/12/21 21:59 05:59 13:59 Intake Total 1784 1553 198 Output Total 475 425 Balance 1309 1128 198 Weight 151 lb 12.8 oz 159 lb 6.4 oz Intake: IV 1784 1313 198 Sodium Chloride 0.9% 1,000 ml @ 1000 1000 125 mls/hr IV .Q8H [facility] Rx#: [id number] Sodium Chloride 0.9% 250 ml @ 14 0 198 20 mls/hr IV .[id number] [facility] Rx#: [id number] Zithromax 500 mg In Dextrose 5% 250 in Water 250 ml @ 250 mls/hr IV ONCE ONE Rx#:[id number] Precedex 400 Mcg/100 ml 10 63 Dextrose 400 Mcg In Premix 1 Bag @ 0.2 MCG/KG/HR 3.511 mls/ hr IV .Q24H [facility] Rx#:[id number] Potassium Chloride 20 Meq In 260 Dextrose 5% in Water 250 ml @ 130 mls/hr IV ONCE ONE Rx#: [id number] Veklury 200 mg In Sodium 250 Chloride 0.9% 250 ml @ 500 mls/ hr IV ONCE ONE Rx#:[id number] Vancomycin 1,000 mg In Sodium 250 Chloride 0.9% 250 ml @ 250 mls/ hr IV Q12H [facility] Rx#:[id number] Oral 240 Output: Urine Catheter Amount 475 425 Other: Urine Appearance Clear Clear Uretheral (Aquino) Clear Urine Color Bright Yellow Dark Yellow Uretheral (Aquino) Bright Yellow Urine Odor Normal Uretheral (Aquino) Normal Stool Size Small Stool Color Brown Stool Consistency Loose # of times incontinent of 1 Bowels GENERAL: In bed on BiPAP, appears calm RESPIRATORY: Clear to auscultation today while on BiPAP, respirations mildly labored CARDIOVASCULAR: Regular rate and rhythm ABDOMEN: Soft, nontender EXTREMITIES: No edema NEURO: Alert, oriented x3, moves all extremities OBJ DATA Labs CBC & Chem 7: 02/12/21 05:13 02/12/21 05:13 Labs: Abnormal Lab Results 02/12/21 02/12/21 02/12/21 05:13 05:13 05:13 RBC 3.58 L MPV 10.5 H Neut % (Auto) 84.3 H Lymph % (Auto) 8.1 L Lymph # (Auto) 0.45 L Band Neutrophils % Lymphocytes % APTT Potassium Carbon Dioxide 18 L Creatinine 0.4 L Glucose 140 H Calcium 7.7 L Phosphorus 2.4 L Lactate Dehydrogenase 273 H NT-Pro-B Natriuret Pep Total Protein 5.3 L Albumin 3.0 L Procalcitonin 0.54 H 02/11/21 02/11/21 02/11/21 10:53 10:53 10:53 RBC MPV 10.5 H Neut % (Auto) Lymph % (Auto) Lymph # (Auto) Band Neutrophils % 24 H Lymphocytes % 1 L APTT 39.7 H Potassium 2.9 L* Carbon Dioxide 18 L Creatinine Glucose 116 H Calcium 8.4 L Phosphorus Lactate Dehydrogenase NT-Pro-B Natriuret Pep 2000.0 H Total Protein Albumin Procalcitonin 02/11/21 10:52 RBC MPV Neut % (Auto) Lymph % (Auto) Lymph # (Auto) Band Neutrophils % Lymphocytes % APTT Potassium Carbon Dioxide Creatinine Glucose Calcium Phosphorus Lactate Dehydrogenase NT-Pro-B Natriuret Pep Total Protein Albumin Procalcitonin 0.68 H Meds: Medications Acetaminophen (Acetaminophen 325 Mg Tablet) 650 mg PO Q6HP PRN; Protocol PRN Reason: Per Pain Protocol/Fever > 101 Last Admin: 02/11/21 17:30 Dose: 650 mg Documented by: Hydrocodone Bitart/Acetaminophen (Hydrocodone/Apap 5/325mg Tablet) 1 tab PO Q4HP PRN; Protocol PRN Reason: Per Pain Protocol Budesonide (Budesonide 3 Mg Cap.Xl.24h) 9 mg PO DAILY [facility] Buspirone HCl (Buspirone 15 Mg Tablet) 15 mg PO BIDP PRN PRN Reason: anxiety Cefepime HCl (Cefepime 2 Gm Vial) 2 gm IV Q12H [facility]; Protocol Last Admin: 02/11/21 21:53 Dose: 2 gm Documented by: Dexamethasone (Dexamethasone 10 Mg/Ml Vial) 6 mg IV Q24H [facility] Last Admin: 02/11/21 18:21 Dose: 6 mg Documented by: Enoxaparin Sodium (Enoxaparin 40 Mg/0.4 Ml Syringe) 40 mg SQ DAILY [facility] Escitalopram Oxalate (Escitalopram 20 Mg Tablet) 20 mg PO DAILY [facility] Guaifenesin/Codeine Phosphate (Guaifenesin/Codeine 10 Ml Udc) 5 ml PO Q4HP PRN PRN Reason: Cough Last Admin: 02/12/21 05:37 Dose: 5 ml Documented by: REMDESIVIR 100 mg/ Sodium (Chloride) 250 mls @ 500 mls/hr IV Q24H [facility] Stop: 02/15/21 14:29 Sodium Chloride (Sodium Chloride 0.9%) 1,000 mls @ 125 mls/hr IV .Q8H [facility] Last Admin: 02/12/21 02:26 Dose: 125 mls/hr Documented by: Azithromycin 500 mg/ Dextrose 250 mls @ 250 mls/hr IV Q24H [facility]; Protocol Stop: 02/14/21 10:59 Dexmedetomidine HCl 400 mcg/ (Premix) 100 mls @ 3.511 mls/hr IV .Q24H [facility]; Protocol Last Admin: 02/12/21 05:08 Dose: 0.4 mcg/kg/hr, 7.022 mls/hr Documented by: Sodium Chloride (Sodium Chloride 0.9%) 250 mls @ 20 mls/hr IV .[id number] [facility] Last Admin: 02/12/21 07:53 Dose: 20 mls/hr Documented by: Vancomycin HCl 1,000 mg/ (Sodium Chloride) 250 mls @ 250 mls/hr IV Q12H [facility] Last Infusion: 02/11/21 22:15 Dose: Infused Documented by: Potassium Phosphate 20 meq/ (Dextrose) 254.5455 mls @ 127.273 mls/hr IV ONCE ONE Stop: 02/12/21 10:15 Lactulose (Lactulose 20 Gm/30 Ml Oral.Disha) 10 gm PO DAILYP PRN PRN Reason: Constipation Levothyroxine Sodium (Levothyroxine 100 Mcg Tablet) 100 mcg PO QACOX SOUTH Last Admin: 02/12/21 07:21 Dose: 100 mcg Documented by: Lorazepam (Lorazepam 2 Mg/Ml Vial) 2 mg IV Q4HP PRN PRN Reason: ANXIETY/SEDATION Mesalamine (Mesalamine 500 Mg Capsule) 1,000 mg PO QID [facility] Last Admin: 02/11/21 21:07 Dose: 1,000 mg Documented by: Non-Formulary Medication (Thyroid (Pork) [Internal Grinder Tender Thyroid]) 40 mg PO QDAY [facility] Ondansetron HCl (Ondansetron 4 Mg/2 Ml Vial) 4 mg IV Q4HP PRN; Protocol PRN Reason: Nausea And Vomiting Pantoprazole Sodium (Pantoprazole 40 Mg Tablet) 40 mg PO QACOX SOUTH Last Admin: 02/12/21 07:21 Dose: 40 mg Documented by: Progesterone Micronized 200 Mg Capsule 1 dose PO QHS [facility] Last Admin: 02/11/21 20:29 Dose: Not Given Documented by: Senna (Sennosides 1 Tablet) 2 tab PO HSP PRN PRN Reason: Constipation Sodium Chloride (0.9 % Sodium Chloride 10 Ml Syringe) 10 ml IV Q8 [facility] Last Admin: 02/12/21 07:21 Dose: Not Given Documented by: Throat Lozenges (Benzocaine/Menthol 1 Lozenge) 1 lozenge PO PRN PRN PRN Reason: Sore Throat Last Admin: 02/12/21 07:51 Dose: 1 lozenge Documented by: Vancomycin HCl (Vancomycin Per Pharmacy) 1 order IV [facility]; Protocol Zolpidem Tartrate (Zolpidem 5 Mg Tablet) 5 mg PO QHS PRN PRN Reason: insomnia A/P Narrative A/P Narrative: 35-year-old female, who is a nurse at [employer], has a prior history of Covid and is fully vaccinated presents a second time to the ED with several days of worsening dyspnea is found to have bilateral extensive pneumonia. Initially on nonrebreather, after arrival in the PCU, required escalation to HHFNC and subsequently BiPAP. Bilateral pneumonia and ARDS -Presentation concerning for COVID-19 given rapid progression and radiographic findings -Negative SARS-CoV-2 antigen and [place] PCR -[place] SARS-CoV-2 PCR pending -RVP negative, urinary pneumococcal antigen negative -Urinary Legionella and mycoplasma serology pending 02/12 -Bacterial pneumonia, both typical and atypical possible, particularly given procalcitonin of 0.68 at presentation, remaining elevated 02/12 -At risk with possible healthcare exposures, works as a nurse in minor care -Recent diagnosis of ulcerative proctitis, may be mildly immunosuppressed -After discussion of risks and benefits, will begin treatment for COVID-19: Remdesivir and dexamethasone -We will cover for bacterial pathogens, broad-spectrum (vancomycin and cefepime) as well as for atypicals (azithromycin) Acute respiratory failure with hypoxia -Secondary to pneumonia/ARDS -Initially requiring nonrebreather, subsequently required HHFNC, then BiPAP -Significant anxiety associated with dyspnea, improved with Precedex -Proning as much as possible with significant improvement in oxygenation Hypokalemia -Repleting Ulcerative proctitis -Diagnosed on colonoscopy early January -On oral budesonide and mesalamine Plan: * Continue vancomycin, cefepime and azithromycin * Follow-up [place] COVID-19 assay * Continue dexamethasone, beneficial for ARDS from either Covid or other etiologies * Continue remdesivir, unlikely to cause harm and may benefit if this is COVID- 19 * Continue respiratory support with BiPAP * Low threshold to intubate * Prone is much as possible * Follow-up urinary Legionella antigen and mycoplasma serology * Guaifenesin with codeine for cough * Empiric fluconazole to prevent yeast infection while on antibiotics * Replete phosphorus * Continue to trend white count, procalcitonin, CRP * Continue budesonide and mesalamine Prophylaxis: Enoxaparin CODE STATUS: Full code Time Spent With Patient Time: Total time spent is greater than 50% in coordination of care (as documented) at patient's floor/unit and/or counseling patient: Total time spent with greater than 50% in coordination of care (as documented) at patient's floor/unit and/or counseling patient:: Greater than 35 minutes QUALITY VTE Deep Vein Thrombosis/Pulmonary Embolism Present on Admission: No
--- NOTE | 2021-02-12 08:47 | EKG ---
[facility] Test Date: 2021-02-11 Pat Name: Cheyanne Moody Department: ED Room: Gender: Female Marketing Services Rep: JOE : 1985 Requested By: Yeison Esparza Order Number: [id number] Reading MD: Gabriel Dumont Measurements Intervals [place] Rate: 117 P: 45 MI: 160 QRS: 56 QRSD: 92 T: 9 QT: 320 QTc: 447 Interpretive Statements SINUS TACHYCARDIA Electronically Signed On 02-12-2021 8:47:35 PDT by Gabriel Dumont /store/[email or web address]/[id number]/[id number]
[2021-02-12] MEDS ORDERED: cefTRIAXone 2 GM in DEXTROSE 5% IN WATER 50 ML IV SCH (09:00)
[2021-02-12] MEDS ORDERED: THYROID 15 MG PO SCH (09:00)
[2021-02-12] MEDS ORDERED: BUDESONIDE 3 MG CAP.XL.24H PO SCH (09:00)
[2021-02-12] MEDS: CEFEPIME 2 GM VIAL IV SCH ×2 (09:16→22:10)
[2021-02-12] MEDS: ENOXAPARIN 40 MG/0.4 ML SYRINGE SQ SCH (09:16)
[2021-02-12] MEDS: ESCITALOPRAM 20 MG TABLET PO SCH (09:16)
[2021-02-12] MEDS: MESALAMINE 500 MG CAPSULE PO SCH ×2 (09:17→15:07)
[2021-02-12] MEDS: VANCOMYCIN 1,000 MG in 0.9 % SODIUM CHLORIDE 250 ML IV SCH ×2 (09:18→22:24)
[2021-02-12] MEDS ORDERED: AZITHROMYCIN 500 MG in DEXTROSE 5% IN WATER 250 ML IV SCH (10:00)
[2021-02-12] MEDS ORDERED: FLUCONAZOLE 100 MG TABLET PO ONE (10:50)
[2021-02-12] MEDS ORDERED: REMDESIVIR 100 MG in 0.9 % SODIUM CHLORIDE 250 ML IV SCH (14:00)
[2021-02-12] MEDS: LEVOFLOXACIN 750 MG/150 ML BAG IV SCH (15:16)
[2021-02-12] MEDS: DEXAMETHASONE 10 MG/ML VIAL IV SCH (17:07)
[2021-02-12] MEDS: ACETAMINOPHEN 325 MG TABLET PO PRN (17:07)
[2021-02-12] MEDS: THYROID 60 MG PO SCH (17:08)
--- NOTE | 2021-02-12 18:12 | Internal Med Progress Note ---
SUBJECTIVE Subjective Patient information: Note initiated : 02/12/21 at 6:00 pm Service Date, if different from initiated Date: [] Patient: Cheyanne Moody 35 y/o F admitted on 02/11/21 for shortness of breath, low O2 sats. Chief Complaint: [] Principal diagnosis: bilateral pneumonia Interval history: pts has been having diarrhea diagnosed as ulcer proctitis (colitis). Was treated with steroid enemas and had worsened pain and bleeding. CT done of rectum no abscess. Pt on Saturday started mesalamine and oral bedesonide 9mg capsule. She had started sob and onset of fevers. The initial CXR scant bilateral infiltrates 02/09. By 02/11 CT had severe bilateral infiltrates. Overnight still on oxygen but decreasing today. [place] Covid text came back negative so I went to interview the pt and her . ROS no fevers chills today Gen no WG or WL CV neg Resp positive cough dry GI neg misc had covid last february and consisted of loss of smell and taste. no respiratory distress. No oxygen needed. Pt then had moderna shots x 2. 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 Also working on her [employer]. She and both deny blood transfusions, IVDA, past STDs, homosexual, prostitution or other risky behaviors. NO risk factor for HIV. no past autoimmune illness before the Ulcerative proctitis. No hx of HSV proctitis or labia. Constitutional Vitals: Vital Signs Temp Pulse Resp BP Pulse Ox 98.3 F 90 28 H 141/93 98 02/12/21 16:06 02/12/21 17:00 02/12/21 17:00 02/12/21 17:00 02/12/21 17:00 Period Temp Pulse Resp BP Sys/Conway Pulse Ox Last 24 Hr 97.9 F-103.0 F 68-132 16-55 102-150/64-101 88-100 Intake and Output 02/12/21 02/12/21 02/12/21 05:59 13:59 21:59 Intake Total 1553 2121.5455 150 Output Total 396 034 7980 Balance 1128 1796.5401 -2072 Weight 72.303 kg Intake & Output: Intake & Output 1002/12/21 02/12/21 05:59 13:59 21:59 Intake Total 1553 2121.5455 150 Output Total 276 722 3296 Balance 1128 1790.0525 -2072 Weight 72.303 kg Intake: IV 1313 2121.5455 150 Sodium Chloride 0.9% 1,000 ml @ 1000 1000 125 mls/hr IV .Q8H [facility] Rx#: [id number] Sodium Chloride 0.9% 250 ml @ 0 310 20 mls/hr IV .[id number] [facility] Rx#: [id number] Zithromax 500 mg In Dextrose 5% 250 in Water 250 ml @ 250 mls/hr IV Q24H [facility] Rx#:[id number] Precedex 400 Mcg/100 ml 63 57 Dextrose 400 Mcg In Premix 1 Bag @ 0.2 MCG/KG/HR 3.511 mls/ hr IV .Q24H [facility] Rx#:[id number] Potassium Phosphate 20 Meq In 254.5455 Dextrose 5% in Water 250 ml @ 127.273 mls/hr IV ONCE ONE Rx#: [id number] Vancomycin 1,000 mg In Sodium 250 250 Chloride 0.9% 250 ml @ 250 mls/ hr IV Q12H [facility] Rx#:[id number] Oral 240 Output: Urine Catheter Amount 109 936 2746 Stool 200 Other: Urine Appearance Clear Clear Clear Urine Color Dark Yellow Straw Bright Yellow Urine Odor Normal Normal Stool Size Small Moderate Stool Color Brown Brown Stool Consistency Loose Liquid # Bowel Movements 1 # of times incontinent of 1 0 Bowels GEN WDWN WF in NAD CV RRR lungs CTA ABd soft NTND Calves no edema mentation alert and oriented x 3. Skin Warm and dry OBJ DATA Labs CBC & Chem 7: 02/12/21 05:13 02/12/21 05:13 Labs: Abnormal Lab Results 02/12/21 02/12/21 02/12/21 05:13 05:13 05:13 RBC 3.58 L MPV 10.5 H Neut % (Auto) 84.3 H Lymph % (Auto) 8.1 L Lymph # (Auto) 0.45 L Band Neutrophils % Lymphocytes % APTT Potassium Carbon Dioxide 18 L Creatinine 0.4 L Glucose 140 H Calcium 7.7 L Phosphorus 2.4 L Lactate Dehydrogenase 273 H NT-Pro-B Natriuret Pep Total Protein 5.3 L Albumin 3.0 L Procalcitonin 0.54 H 02/11/21 02/11/21 02/11/21 10:53 10:53 10:53 RBC MPV 10.5 H Neut % (Auto) Lymph % (Auto) Lymph # (Auto) Band Neutrophils % 24 H Lymphocytes % 1 L APTT 39.7 H Potassium 2.9 L* Carbon Dioxide 18 L Creatinine Glucose 116 H Calcium 8.4 L Phosphorus Lactate Dehydrogenase NT-Pro-B Natriuret Pep 2000.0 H Total Protein Albumin Procalcitonin 02/11/21 10:52 RBC MPV Neut % (Auto) Lymph % (Auto) Lymph # (Auto) Band Neutrophils % Lymphocytes % APTT Potassium Carbon Dioxide Creatinine Glucose Calcium Phosphorus Lactate Dehydrogenase NT-Pro-B Natriuret Pep Total Protein Albumin Procalcitonin 0.68 H Meds: Medications Acetaminophen (Acetaminophen 325 Mg Tablet) 650 mg PO Q6HP PRN; Protocol PRN Reason: Per Pain Protocol/Fever > 101 Last Admin: 02/12/21 17:07 Dose: 650 mg Documented by: Hydrocodone Bitart/Acetaminophen (Hydrocodone/Apap 5/325mg Tablet) 1 tab PO Q4HP PRN; Protocol PRN Reason: Per Pain Protocol Buspirone HCl (Buspirone 15 Mg Tablet) 15 mg PO BIDP PRN PRN Reason: anxiety Cefepime HCl (Cefepime 2 Gm Vial) 2 gm IV Q12H [facility]; Protocol Last Admin: 02/12/21 09:16 Dose: 2 gm Documented by: Dexamethasone (Dexamethasone 10 Mg/Ml Vial) 6 mg IV Q24H [facility] Last Admin: 02/12/21 17:07 Dose: 6 mg Documented by: Enoxaparin Sodium (Enoxaparin 40 Mg/0.4 Ml Syringe) 40 mg SQ DAILY [facility] Last Admin: 02/12/21 09:16 Dose: 40 mg Documented by: Escitalopram Oxalate (Escitalopram 20 Mg Tablet) 20 mg PO DAILY [facility] Last Admin: 02/12/21 09:16 Dose: 20 mg Documented by: Fluconazole (Fluconazole 100 Mg Tablet) 100 mg PO DAILY [facility]; Protocol Guaifenesin/Codeine Phosphate (Guaifenesin/Codeine 10 Ml Udc) 5 ml PO Q4HP PRN PRN Reason: Cough Last Admin: 02/12/21 17:08 Dose: 5 ml Documented by: Sodium Chloride (Sodium Chloride 0.9%) 1,000 mls @ 125 mls/hr IV .Q8H [facility] Last Admin: 02/12/21 16:51 Dose: Not Given Documented by: Dexmedetomidine HCl 400 mcg/ (Premix) 100 mls @ 3.511 mls/hr IV .Q24H [facility]; Protocol Last Admin: 02/12/21 16:51 Dose: Not Given Documented by: Sodium Chloride (Sodium Chloride 0.9%) 250 mls @ 20 mls/hr IV .[id number] [facility] Last Infusion: 02/12/21 13:30 Dose: Infused Documented by: Vancomycin HCl 1,000 mg/ (Sodium Chloride) 250 mls @ 250 mls/hr IV Q12H [facility] Last Infusion: 02/12/21 11:47 Dose: Infused Documented by: Levofloxacin (Levaquin) 750 mg in 150 mls @ 100 mls/hr IV Q24H [facility] Last Infusion: 02/12/21 16:55 Dose: Infused Documented by: Lactulose (Lactulose 20 Gm/30 Ml Oral.Disha) 10 gm PO DAILYP PRN PRN Reason: Constipation Lorazepam (Lorazepam 2 Mg/Ml Vial) 2 mg IV Q4HP PRN PRN Reason: ANXIETY/SEDATION Ondansetron HCl (Ondansetron 4 Mg/2 Ml Vial) 4 mg IV Q4HP PRN; Protocol PRN Reason: Nausea And Vomiting Pantoprazole Sodium (Pantoprazole 40 Mg Tablet) 40 mg PO QAMAC [facility] Last Admin: 02/12/21 07:21 Dose: 40 mg Documented by: Progesterone Micronized 200 Mg Capsule 1 dose PO QHS [facility] Last Admin: 02/11/21 20:29 Dose: Not Given Documented by: Thyroid (Pork) [Manager Car Thyroid] 60 Mg Tablet 1 dose PO BIDAC [facility] Last Admin: 02/12/21 17:08 Dose: 1 dose Documented by: Senna (Sennosides 1 Tablet) 2 tab PO HSP PRN PRN Reason: Constipation Sodium Chloride (0.9 % Sodium Chloride 10 Ml Syringe) 10 ml IV Q8 [facility] Last Admin: 02/12/21 15:17 Dose: 10 ml Documented by: Throat Lozenges (Benzocaine/Menthol 1 Lozenge) 1 lozenge PO PRN PRN PRN Reason: Sore Throat Last Admin: 02/12/21 17:07 Dose: 1 lozenge Documented by: Vancomycin HCl (Vancomycin Per Pharmacy) 1 order IV UD [facility]; Protocol Zolpidem Tartrate (Zolpidem 5 Mg Tablet) 5 mg PO QHS PRN PRN Reason: insomnia A/P Assessment and plan (1) Bilateral pneumonia: Status: Acute Comment: Pt may have non infectious pneumonitis from mesalamine. will stop mesalamine and budesonide. Supportive care. unable to give sputum. symptoms only since after start medication Saturday (2) Ulcerative proctitis: Status: Acute Comment: recent diagnosis and symptoms 6 months Time Spent With Patient Time: Total time spent is greater than 50% in coordination of care (as document ed) at patient's floor/unit and/or counseling patient: Total time spent with greater than 50% in coordination of care (as documented) at patient's floor/unit and/or counseling patient:: Greater than 35 minutes QUALITY VTE Deep Vein Thrombosis/Pulmonary Embolism Present on Admission: No
[2021-02-12] MEDS: HYDROcodone/APAP 5/325MG TABLET PO PRN (19:49)
[2021-02-12] MEDS: Progesterone Micronized 200 mg capsule PO SCH (22:23)
[2021-02-12] MEDS ORDERED: diphenhydrAMINE 25 MG CAPSULE PO PRN (23:15)
[2021-02-13] MEDS: HYDROcodone/APAP 5/325MG TABLET PO PRN ×2 (01:19→10:11)
[2021-02-13] MEDS ORDERED: diphenhydrAMINE 25 MG CAPSULE ONE (01:24)
[2021-02-13] MEDS: guaiFENesin/CODEINE 10 ML UDC PO PRN ×2 (04:46→09:02)
[2021-02-13] MEDS: 0.9 % SODIUM CHLORIDE 1,000 ML IV SCH ×4 (06:06→23:54)
[2021-02-13] MEDS: 0.9 % SODIUM CHLORIDE 10 ML SYRINGE IV SCH ×3 (06:53→22:00)
[2021-02-13 07:14] LABS: Basophils # (Auto) 0.01 K/mcL (0.00-0.30); Basophils % (Auto) 0.1 % (0.0-2.0); Eosinophils # (Auto) 0 K/mcL (0.00-0.70); Eosinophils % (Auto) 0 % (0.0-7.0); Hematocrit 30.5 % (34.1-44.9); Hemoglobin 10.4 g/dL (11.2-15.7); Lymphocytes # (Auto) 0.55 K/mcL (1.50-4.80); Lymphocytes % (Auto) 6.7 % (15.5-49.0); Mean Cell Volume 94.1 fL (80.0-100.0); Mean Corpuscular HGB Conc 34.1 g/dL (31.0-36.0); Mean Platelet Volume 10.5 fL (7.4-10.4); Monocytes # (Auto) 0.38 K/mcL (0.10-0.90); Monocytes % (Auto) 4.6 % (1.0-12.0); Neutrophils % (Auto) 88.6 % (38.0-78.0); Platelet Count 179 K/mcL (140-440); RBC 3.24 M/mcL (3.59-5.38); Red Cell Distribution Width 12.3 % (11.5-14.5); WBC 8.2 K/mcL (4.5-11.0)
[2021-02-13] MEDS: THYROID 60 MG PO SCH ×2 (07:33→17:52)
[2021-02-13] MEDS: PANTOPRAZOLE 40 MG TABLET PO SCH (07:33)
[2021-02-13] MEDS: 0.9 % SODIUM CHLORIDE 250 ML IV SCH ×2 (07:33→18:49)
[2021-02-13 07:40] LABS: Albumin 2.8 gm/dL (3.2-5.2); Blood Urea Nitrogen 10 mg/dL (6-20); Calcium 8.3 mg/dL (8.6-10.4); Carbon Dioxide 21 mmol/L (22-30); Chloride 108 mmol/L (96-108); Glomerular Filtration Rate 135; Glucose 134 mg/dL (70-105); Phosphorous 1.8 mg/dL (2.5-4.5)
[2021-02-13] MEDS: FLUCONAZOLE 100 MG TABLET PO SCH (08:50)
[2021-02-13] MEDS: CEFEPIME 2 GM VIAL IV SCH ×2 (08:50→21:50)
[2021-02-13] MEDS: ENOXAPARIN 40 MG/0.4 ML SYRINGE SQ SCH (08:50)
[2021-02-13] MEDS: ESCITALOPRAM 20 MG TABLET PO SCH (09:01)
[2021-02-13] MEDS: LEVOFLOXACIN 750 MG/150 ML BAG IV SCH (09:42)
[2021-02-13] MEDS: BENZOCAINE/MENTHOL 1 LOZENGE PO PRN (10:11)
[2021-02-13] MEDS: VANCOMYCIN 1,000 MG in 0.9 % SODIUM CHLORIDE 250 ML IV SCH (10:12)
[2021-02-13] MEDS ORDERED: guaiFENesin/CODEINE 10 ML UDC PO PRN (10:16)
--- NOTE | 2021-02-13 13:48 | Internal Med Progress Note ---
SUBJECTIVE Subjective Patient information: Note initiated : 02/13/21 at 1:41 pm Service Date, if different from initiated Date: [] Patient: Cheyanne Moody 35 y/o F admitted on 02/11/21 for shortness of breath, low O2 sats. Chief Complaint: sob Principal diagnosis: bilateral pneumonia Interval history: ovenight resp condition was improved until this mid sleep when on RA and got up to go to BR and sat drop to 70%. now on 10 liter. cough is dry. no fevers no chest pain Pertinent ROS: no fever chills Additional PMFSH (Level 3 Only): hx of Covid last year with loss of smell and taste. 90% returned. had 2 covid vaccines of moderna since then Constitutional Vitals: Vital Signs Temp Pulse Resp BP Pulse Ox 97.3 F 66 32 H 115/78 95 02/13/21 12:00 02/13/21 06:01 02/13/21 13:22 02/13/21 12:00 02/13/21 13:22 Period Temp Pulse Resp BP Sys/Conway Pulse Ox Last 24 Hr 97.3 F-98.4 F 66-102 18-41 102-178/65-101 90-100 Intake and Output 02/12/21 02/13/21 02/13/21 21:59 05:59 13:59 Intake Total 2440 1970 150 Output Total 2475 850 Balance -35 1120 150 Weight 73.21 kg Intake & Output: Intake & Output 02/12/21 02/13/21 02/13/21 21:59 05:59 13:59 Intake Total 2440 1970 150 Output Total 2475 850 Balance -35 1120 150 Weight 73.21 kg Intake: IV 1150 1250 150 Sodium Chloride 0.9% 1,000 ml @ 1000 1000 125 mls/hr IV .Q8H [facility] Rx#: [id number] Vancomycin 1,000 mg In Sodium 250 Chloride 0.9% 250 ml @ 250 mls/ hr IV Q12H [facility] Rx#:[id number] Oral 1290 720 Output: Urine Catheter Amount 2024 Urine/Stool Mix 250 850 Stool 200 Other: Meal Lunch Lunch Percent of Meal Consumed 50% 100% Feeding Ability Independent Urine Appearance Clear Urine Color Bright Yellow Urine Odor Normal Stool Size Moderate Stool Color Brown Stool Consistency Liquid # Bowel Movements 1 # of times incontinent of 0 Bowels Additional findings Additional findings: GEN WDWN thin WF in NAD on oximizer mask CV RRR Lungs CTA no rales or wheezes Calves no edema Skin warm and dry. OBJ DATA Labs CBC & Chem 7: 02/13/21 05:11 02/13/21 05:11 Labs: Abnormal Lab Results 02/13/21 02/13/21 02/13/21 05:12 05:11 05:11 RBC 3.24 L Hgb 10.4 L Hct 30.5 L MPV 10.5 H Neut % (Auto) 88.6 H Lymph % (Auto) 6.7 L Lymph # (Auto) 0.55 L Band Neutrophils % Lymphocytes % APTT Potassium Carbon Dioxide 21 L Creatinine 0.4 L Glucose 134 H Calcium 8.3 L Phosphorus 1.8 L Lactate Dehydrogenase NT-Pro-B Natriuret Pep Total Protein Albumin 2.8 L Procalcitonin 0.23 H 02/12/21 02/12/21 02/12/21 05:13 05:13 05:13 RBC 3.58 L Hgb Hct MPV 10.5 H Neut % (Auto) 84.3 H Lymph % (Auto) 8.1 L Lymph # (Auto) 0.45 L Band Neutrophils % Lymphocytes % APTT Potassium Carbon Dioxide 18 L Creatinine 0.4 L Glucose 140 H Calcium 7.7 L Phosphorus 2.4 L Lactate Dehydrogenase 273 H NT-Pro-B Natriuret Pep Total Protein 5.3 L Albumin 3.0 L Procalcitonin 0.54 H 02/11/21 02/11/21 02/11/21 10:53 10:53 10:53 RBC Hgb Hct MPV 10.5 H Neut % (Auto) Lymph % (Auto) Lymph # (Auto) Band Neutrophils % 24 H Lymphocytes % 1 L APTT 39.7 H Potassium 2.9 L* Carbon Dioxide 18 L Creatinine Glucose 116 H Calcium 8.4 L Phosphorus Lactate Dehydrogenase NT-Pro-B Natriuret Pep 2000.0 H Total Protein Albumin Procalcitonin 02/11/21 10:52 RBC Hgb Hct MPV Neut % (Auto) Lymph % (Auto) Lymph # (Auto) Band Neutrophils % Lymphocytes % APTT Potassium Carbon Dioxide Creatinine Glucose Calcium Phosphorus Lactate Dehydrogenase NT-Pro-B Natriuret Pep Total Protein Albumin Procalcitonin 0.68 H Meds: Medications Acetaminophen (Acetaminophen 325 Mg Tablet) 650 mg PO Q6HP PRN; Protocol PRN Reason: Per Pain Protocol/Fever > 101 Last Admin: 02/12/21 17:07 Dose: 650 mg Documented by: Hydrocodone Bitart/Acetaminophen (Hydrocodone/Apap 5/325mg Tablet) 1 tab PO Q4HP PRN; Protocol PRN Reason: Per Pain Protocol Last Admin: 02/13/21 10:11 Dose: 1 tab Documented by: Buspirone HCl (Buspirone 15 Mg Tablet) 15 mg PO BIDP PRN PRN Reason: anxiety Cefepime HCl (Cefepime 2 Gm Vial) 2 gm IV Q12H [facility]; Protocol Last Admin: 02/13/21 08:50 Dose: 2 gm Documented by: Dexamethasone (Dexamethasone 10 Mg/Ml Vial) 4 mg IV BID [facility] Diphenhydramine HCl (Diphenhydramine 25 Mg Capsule) 50 mg PO HSP PRN PRN Reason: Insomnia Last Admin: 02/13/21 01:19 Dose: 50 mg Documented by: Enoxaparin Sodium (Enoxaparin 40 Mg/0.4 Ml Syringe) 40 mg SQ DAILY [facility] Last Admin: 02/13/21 08:50 Dose: 40 mg Documented by: Escitalopram Oxalate (Escitalopram 20 Mg Tablet) 20 mg PO DAILY [facility] Last Admin: 02/13/21 09:01 Dose: 20 mg Documented by: Fluconazole (Fluconazole 100 Mg Tablet) 100 mg PO DAILY [facility]; Protocol Last Admin: 02/13/21 08:50 Dose: 100 mg Documented by: Guaifenesin/Codeine Phosphate (Guaifenesin/Codeine 10 Ml Udc) 10 ml PO Q4HP PRN PRN Reason: Cough Sodium Chloride (Sodium Chloride 0.9%) 1,000 mls @ 125 mls/hr IV .Q8H [facility] Last Admin: 02/13/21 08:46 Dose: Not Given Documented by: Sodium Chloride (Sodium Chloride 0.9%) 250 mls @ 20 mls/hr IV .[id number] [facility] Last Admin: 02/13/21 07:33 Dose: Not Given Documented by: Levofloxacin (Levaquin) 750 mg in 150 mls @ 100 mls/hr IV Q24H [facility] Last Infusion: 02/13/21 11:15 Dose: Infused Documented by: Lactulose (Lactulose 20 Gm/30 Ml Oral.Disha) 10 gm PO DAILYP PRN PRN Reason: Constipation Loratadine (Loratadine 10 Mg Tablet) 10 mg PO DAILY [facility] Lorazepam (Lorazepam 2 Mg/Ml Vial) 2 mg IV Q4HP PRN PRN Reason: ANXIETY/SEDATION Ondansetron HCl (Ondansetron 4 Mg/2 Ml Vial) 4 mg IV Q4HP PRN; Protocol PRN Reason: Nausea And Vomiting Last Admin: 02/12/21 19:49 Dose: 4 mg Documented by: Pantoprazole Sodium (Pantoprazole 40 Mg Tablet) 40 mg PO QAMAC [facility] Last Admin: 02/13/21 07:33 Dose: 40 mg Documented by: Progesterone Micronized 200 Mg Capsule 1 dose PO QHS [facility] Last Admin: 02/12/21 22:23 Dose: Not Given Documented by: Thyroid (Pork) [Tag Stringer Thyroid] 60 Mg Tablet 1 dose PO BIDAC [facility] Last Admin: 02/13/21 07:33 Dose: 1 dose Documented by: Senna (Sennosides 1 Tablet) 2 tab PO HSP PRN PRN Reason: Constipation Sodium Chloride (0.9 % Sodium Chloride 10 Ml Syringe) 10 ml IV Q8 [facility] Last Admin: 02/13/21 12:39 Dose: 10 ml Documented by: Throat Lozenges (Benzocaine/Menthol 1 Lozenge) 1 lozenge PO PRN PRN PRN Reason: Sore Throat Last Admin: 02/13/21 10:11 Dose: 1 lozenge Documented by: Zolpidem Tartrate (Zolpidem 5 Mg Tablet) 5 mg PO QHS PRN PRN Reason: insomnia Last Admin: 02/12/21 23:11 Dose: 5 mg Documented by: A/P Assessment and plan (1) Bilateral pneumonia: Status: Acute Comment: Pt may have non infectious pneumonitis from mesalamine. will stop mesalamine and budesonide. Supportive care. unable to give sputum. symptoms only since after start medication Saturday continue dexamethasone repeat CXR PA and LAt in the morning. (2) Ulcerative proctitis: Status: Acute Comment: recent diagnosis and symptoms 6 months (3) Hypokalemia: Status: Acute Comment: replace with 40 MEQ po x 1 Time Spent With Patient Time: Total time spent is greater than 50% in coordination of care (as documented) at patient's floor/unit and/or counseling patient: 35 mins ambulate TID incentive spirometry QUALITY VTE Deep Vein Thrombosis/Pulmonary Embolism Present on Admission: No
[2021-02-13] MEDS: LORATADINE 10 MG TABLET PO SCH (15:43)
[2021-02-13] MEDS: Progesterone Micronized 200 mg capsule PO SCH (21:06)
[2021-02-13] MEDS: DEXAMETHASONE 10 MG/ML VIAL IV SCH (21:30)
[2021-02-14] MEDS: 0.9 % SODIUM CHLORIDE 10 ML SYRINGE IV SCH ×3 (06:00→22:00)
[2021-02-14] MEDS: 0.9 % SODIUM CHLORIDE 1,000 ML IV SCH ×2 (08:14→15:30)
[2021-02-14] MEDS: 0.9 % SODIUM CHLORIDE 250 ML IV SCH (08:15)
[2021-02-14] MEDS: PANTOPRAZOLE 40 MG TABLET PO SCH (08:21)
[2021-02-14] MEDS: THYROID 60 MG PO SCH ×3 (08:22→17:04)
--- NOTE | 2021-02-14 09:36 | XRay Report ---
INDICATION: bilateral pneumonia TECHNIQUE: PA and lateral upright chest x-ray COMPARISON: Previous chest x-rays dated 02/09/2021 and 06/24/2018. Previous chest CT scan dated 02/11/2021 FINDINGS: Lungs: Bilateral diffuse pulmonary parenchymal infiltrates without dense consolidation or air bronchograms. Etiology of this infiltrates is not certain. Findings may be due to pneumonia although appearance is not typical for bacterial pneumonia. Atypical pneumonia should be considered. Pulmonary vasculitis or eosinophilic pneumonia should be considered. ARDS is possible. Heart, vascular: There is cardiomegaly. There is peribronchial thickening and there are septal lines. Interstitial pulmonary edema is possible. Mediastinum, mariel: No mediastinal widening. No hilar mass Pleura:Bilateral pleural effusions, right larger than left. Thoracic spine, ribs: No thoracic compression fracture. Ribs are negative. No fracture. No lytic lesion IMPRESSION: 1. Bilateral pulmonary parenchymal infiltrates without consolidation or air bronchograms. 2. Bilateral pleural effusions 3. Cardiomegaly. Peribronchial thickening and interlobular septal thickening 4. Atypical pneumonia, pulmonary vasculitis, eosinophilic pneumonia should be considered. Interstitial pulmonary edema is also possible. Interpreted and Authenticated by: Tacos Hightower 02/14/21
[2021-02-14] MEDS: LEVOFLOXACIN 750 MG/150 ML BAG IV SCH (10:00)
[2021-02-14] MEDS: ACETAMINOPHEN 325 MG TABLET PO PRN (10:57)
[2021-02-14] MEDS: ENOXAPARIN 40 MG/0.4 ML SYRINGE SQ SCH (10:57)
[2021-02-14] MEDS: DEXAMETHASONE 10 MG/ML VIAL IV SCH (10:57)
[2021-02-14] MEDS: FLUCONAZOLE 100 MG TABLET PO SCH (10:57)
[2021-02-14] MEDS: CEFEPIME 2 GM VIAL IV SCH (10:58)
[2021-02-14] MEDS: LORATADINE 10 MG TABLET PO SCH (11:02)
[2021-02-14] MEDS: ESCITALOPRAM 20 MG TABLET PO SCH (11:02)
[2021-02-14] MEDS: HYDROcodone/APAP 5/325MG TABLET PO PRN (13:15)
[2021-02-14] MEDS ORDERED: FUROSEMIDE 20 MG/2 ML VIAL IV ONE (16:34)
[2021-02-14] MEDS ORDERED: ACETAMINOPHEN 325 MG TABLET PO PRN (16:54)
[2021-02-14] MEDS ORDERED: ZOLPIDEM 5 MG TABLET PO PRN (16:54)
[2021-02-14] MEDS ORDERED: busPIRone 15 MG TABLET PO PRN (16:54)
[2021-02-14] MEDS ORDERED: BENZOCAINE/MENTHOL 1 LOZENGE PO PRN (16:54)
[2021-02-14] MEDS ORDERED: diphenhydrAMINE 25 MG CAPSULE PO PRN (16:54)
[2021-02-14] MEDS ORDERED: HYDROcodone/APAP 5/325MG TABLET PO PRN (16:54)
[2021-02-14] MEDS ORDERED: ONDANSETRON 4 MG/2 ML VIAL IV PRN (16:54)
[2021-02-14] MEDS ORDERED: guaiFENesin/CODEINE 10 ML UDC PO PRN (16:54)
--- NOTE | 2021-02-14 17:32 | Internal Med Progress Note ---
SUBJECTIVE Subjective Patient information: Note initiated : 02/14/21 at 5:27 pm Service Date, if different from initiated Date: [] Patient: Cheyanne Moody 35 y/o F admitted on 02/11/21 for shortness of breath, low O2 sats. Chief Complaint: [sob and fever] Principal diagnosis: bilateral pneumonia Interval history: 35 yo WF states today feels much better. She is off oxygen. Tells me that she was on budesonide and mesalamine enemas for about 3 weeks. causes severe pain and some bleeding. Ultimately had a CT scan no abscess. Was stopped on a saturday. Did better for a week feeling fine then started mesalamine oral and had initial stuffy nose sore throat and myalgia on saturday day 1. on had nausea, abd pain diarrhea and myalgias and fevers. had cough fevers diarrhea and resp distress. Seen and diagnosed with pneumonia and treated with augmentin and azithromycin from urgent care. Saturday was admitted with possible covid. 3 tests negative. viral and bacterial testing all negative. better with steroids and time away from mesalamine. Pertinent ROS: GEN no fevers chills cough CV no chest pain Resp minimal sob now Additional PMFSH (Level 3 Only): Ulcerative proctitis Constitutional Vitals: Vital Signs Temp Pulse Resp BP Pulse Ox 97.6 F 72 25 H 101/75 95 02/14/21 16:01 02/14/21 16:01 02/14/21 07:03 02/14/21 16:01 02/14/21 16:01 Period Temp Pulse Resp BP Sys/[place]way Pulse Ox Last 24 Hr 96.9 F-98.6 F 43-80 16-25 101-139/65-96 91-100 Intake and Output 02/14/21 02/14/21 02/14/21 05:59 13:59 21:59 Intake Total 1000 1150 1360 Output Total 675 900 Balance 325 1150 460 Intake & Output: Intake & Output 02/14/21 02/14/21 02/14/21 05:59 13:59 21:59 Intake Total 1000 1150 1360 Output Total 675 900 Balance 325 1150 460 Intake: IV 1000 1150 1000 Sodium Chloride 0.9% 1,000 ml @ 1000 1000 1000 125 mls/hr IV .Q8H [facility] Rx#: [id number] Oral 360 Output: Void Amount 0 900 Urine/Stool Mix 675 Other: Meal Breakfast Lunch Percent of Meal Consumed 100% 100% Feeding Ability Independent Urine Appearance Clear Clear Urine Color Bright Yellow Bright Yellow Urine Odor Normal Normal # Voids 1 # Bowel Movements 1 OBJ DATA Labs CBC & Chem 7: 02/13/21 05:11 02/13/21 05:11 Labs: Abnormal Lab Results 02/13/21 02/13/21 02/13/21 05:12 05:11 05:11 RBC 3.24 L Hgb 10.4 L Hct 30.5 L MPV 10.5 H Neut % (Auto) 88.6 H Lymph % (Auto) 6.7 L Lymph # (Auto) 0.55 L Carbon Dioxide 21 L Creatinine 0.4 L Glucose 134 H Calcium 8.3 L Phosphorus 1.8 L Lactate Dehydrogenase Total Protein Albumin 2.8 L Procalcitonin 0.23 H 02/12/21 02/12/21 02/12/21 05:13 05:13 05:13 RBC 3.58 L Hgb Hct MPV 10.5 H Neut % (Auto) 84.3 H Lymph % (Auto) 8.1 L Lymph # (Auto) 0.45 L Carbon Dioxide 18 L Creatinine 0.4 L Glucose 140 H Calcium 7.7 L Phosphorus 2.4 L Lactate Dehydrogenase 273 H Total Protein 5.3 L Albumin 3.0 L Procalcitonin 0.54 H GENeral WDWN WF in NAD CV RRR Lungs few crackles mid and lower lung boyer calves no edema skin warm and dry Meds: Medications Acetaminophen (Acetaminophen 325 Mg Tablet) 650 mg PO Q6HP PRN; Protocol PRN Reason: Per Pain Protocol/Fever > 101 Hydrocodone Bitart/Acetaminophen (Hydrocodone/Apap 5/325mg Tablet) 1 tab PO Q4HP PRN; Protocol PRN Reason: Per Pain Protocol Buspirone HCl (Buspirone 15 Mg Tablet) 15 mg PO BIDP PRN PRN Reason: anxiety Diphenhydramine HCl (Diphenhydramine 25 Mg Capsule) 50 mg PO HSP PRN PRN Reason: Insomnia Enoxaparin Sodium (Enoxaparin 40 Mg/0.4 Ml Syringe) 40 mg SQ DAILY [facility] Escitalopram Oxalate (Escitalopram 20 Mg Tablet) 20 mg PO DAILY [facility] Fluconazole (Fluconazole 100 Mg Tablet) 100 mg PO DAILY [facility]; Protocol Guaifenesin/Codeine Phosphate (Guaifenesin/Codeine 10 Ml Udc) 10 ml PO Q4HP PRN PRN Reason: Cough Loratadine (Loratadine 10 Mg Tablet) 10 mg PO DAILY [facility] Ondansetron HCl (Ondansetron 4 Mg/2 Ml Vial) 4 mg IV Q4HP PRN; Protocol PRN Reason: Nausea And Vomiting Pantoprazole Sodium (Pantoprazole 40 Mg Tablet) 40 mg PO QAMAC [facility] Thyroid (Pork) [Laborer Syrup Machine Thyroid] 60 Mg Tablet 1 dose PO BIDAC [facility] Last Admin: 02/14/21 17:04 Dose: Not Given Documented by: Progesterone Micronized 200 Mg Capsule 1 dose PO QHS [facility] Sodium Chloride (0.9 % Sodium Chloride 10 Ml Syringe) 10 ml IV Q8 [facility] Throat Lozenges (Benzocaine/Menthol 1 Lozenge) 1 lozenge PO PRN PRN PRN Reason: Sore Throat Zolpidem Tartrate (Zolpidem 5 Mg Tablet) 5 mg PO QHS PRN PRN Reason: insomnia A/P Assessment and plan (1) Bilateral pneumonia: Status: Acute Comment: Fairly convinced that pt has pneumonitis from mesalamine. stopped mesalamine and budesonide. Supportive care. unable to give sputum. symptoms only since after start medication Saturday. had milder symptoms with mesalamine oral with mouth, nose and gi symptoms saturday and saturday. continue dexamethasone CXR shows cardiomegaly and mild pulmonary edema. Stop IVF diurese, echo in morning repeat CXR PA and LAt in the morning. transfer to medical floor and discontinue tele ambulate tid (2) Ulcerative proctitis: Status: Acute Comment: recent diagnosis and symptoms 6 months avoid mesalamine for now Time Spent With Patient Time: Total time spent is greater than 50% in coordination of care (as documented) at patient's floor/unit and/or counseling patient: 35 mins QUALITY VTE Deep Vein Thrombosis/Pulmonary Embolism Present on Admission: No
[2021-02-14] MEDS ORDERED: POTASSIUM CHLORIDE 20 MEQ TABLET PO ONE (17:47)
[2021-02-14] MEDS ORDERED: Progesterone Micronized 200 mg capsule PO SCH (21:00)
[2021-02-15] MEDS: 0.9 % SODIUM CHLORIDE 10 ML SYRINGE IV SCH (06:00)
[2021-02-15] MEDS ORDERED: PANTOPRAZOLE 40 MG TABLET PO SCH (07:30)
[2021-02-15] MEDS: THYROID 60 MG PO SCH (07:35)
--- NOTE | 2021-02-15 08:12 | XRay Report ---
INDICATION: follow up pulmonary edema TECHNIQUE: PA and lateral upright chest x-ray COMPARISON: Previous chest x-rays dated 02/14/2021, 02/09/2021, CT scan dated 02/11/2021. FINDINGS: Lungs: Bilateral pulmonary parenchymal infiltrates are improved since previous examination. No new abnormality. Heart, vascular: No significant cardiomegaly. Pulmonary vascularity is normal. No pulmonary edema or pulmonary congestion Mediastinum, mariel: No mediastinal widening. No hilar mass Pleura:There is decreased pleural fluid. Small pleural effusions remain present. Thoracic spine, ribs: No thoracic compression fracture. Ribs are negative. No fracture. No lytic lesion IMPRESSION: 1. Improved chest x-ray with improved infiltrates and decreased pleural effusions. 2. No new abnormality. Interpreted and Authenticated by: Tacos Hightower 02/15/21
[2021-02-15 08:43] LABS: Basophils # (Auto) 0.03 K/mcL (0.00-0.30); Basophils % (Auto) 0.2 % (0.0-2.0); Eosinophils # (Auto) 0.01 K/mcL (0.00-0.70); Eosinophils % (Auto) 0.1 % (0.0-7.0); Hematocrit 33.4 % (34.1-44.9); Hemoglobin 11.1 g/dL (11.2-15.7); Lymphocytes # (Auto) 1.69 K/mcL (1.50-4.80); Lymphocytes % (Auto) 13.6 % (15.5-49.0); Mean Corpuscular HGB Conc 33.2 g/dL (31.0-36.0); Monocytes # (Auto) 0.74 K/mcL (0.10-0.90); Neutrophils % (Auto) 80.1 % (38.0-78.0); Platelet Count 293 K/mcL (140-440); RBC 3.59 M/mcL (3.59-5.38); WBC 12.4 K/mcL (4.5-11.0)
[2021-02-15 08:55] LABS: ALT/SGPT 32 U/L (<40); AST/SGOT 28 U/L (<32); Albumin/Globulin Ratio 1.4 (1.0-2.3); Alkaline Phosphatase 62 U/L (39-117); Bilirubin,Total 0.3 mg/dL (0.1-1.0); Blood Urea Nitrogen 7 mg/dL (6-20); Calcium 8.3 mg/dL (8.6-10.4); Carbon Dioxide 25 mmol/L (22-30); Chloride 106 mmol/L (96-108); Globulin 2.1 gm/dL (2.2-3.7); Glomerular Filtration Rate 125; Glucose 107 mg/dL (70-105)
[2021-02-15] MEDS ORDERED: FLUCONAZOLE 100 MG TABLET PO SCH (09:00)
[2021-02-15] MEDS ORDERED: DEXAMETHASONE 4 MG TABLET PO SCH (09:00)
[2021-02-15] MEDS ORDERED: LORATADINE 10 MG TABLET PO SCH (09:00)
[2021-02-15] MEDS ORDERED: ESCITALOPRAM 20 MG TABLET PO SCH (09:00)
[2021-02-15] MEDS ORDERED: ENOXAPARIN 40 MG/0.4 ML SYRINGE SQ SCH (09:00)
--- NOTE | 2021-02-15 11:01 | Discharge Summary ---
Discharge Provider Provider Patient information: Note initiated : 02/15/21 at 10:47 am Service Date, if different from initiated Date: [] Patient: Cheyanne Moody 35 y/o F admitted on 02/11/21 for shortness of breath, low O2 sats. Chief Complaint: [] Date of admission: 02/11/21 16:04 Discharge date: 02/15/21 Primary care physician: CHEYENNE Bonner Admitting clinician: Kellie Blankenship Attending physician on discharge: Herb Ribeiro Discharge Meds Discharge Medications Home Medications progesterone micronized 200 mg capsule 200 mg PO QHS 09/26/20 [History Confirmed 02/11/21 Last Taken Unknown] testosterone 30 mg/actuation (1.5 mL) transderm solution metered pump 1 pump TOPICAL QDAY 09/26/20 [History Confirmed 02/11/21 Last Taken Unknown] escitalopram oxalate 20 mg tablet See Rx Instructions .ROUTE .COMPLEX #30 tab 11/28/20 [Rx Confirmed 02/11/21 Last Taken Unknown] zolpidem 5 mg tablet 5 mg PO QHS PRN #60 tab 02/06/21 [Rx Confirmed 02/11/21 Last Taken Unknown] thyroid (pork) [CURB BUILDER Thyroid] 60 mg PO BIDAC 02/12/21 [History Confirmed 02/12/21 Last Taken Unknown] dexamethasone 4 mg PO DAILY 3 Days #3 tab 02/15/21 [Rx Last Taken Unknown] fluconazole 100 mg PO DAILY PRN #2 tab 02/15/21 [Rx Last Taken Unknown] loratadine 10 mg PO DAILY #90 tab 02/15/21 [Rx Last Taken Unknown] COURSE Hospital Course Hospital course: 35 yo WF with 6 months of ulcerative proctitis was treated with mesalamine and budesonide rectal suppositories with worsened rectal inflammation and pain. Was so severe that had diarrhea and an investigating CT rectum no abscess. Was stopped on a Saturday and stools firmed up and she had constipation per her baseline. Pt then had on following Saturday start of oral budesonide and mesalamine and had rapid onset nasal congestion and cough. Saturday still taking it had severe diarrhea and abdominal pain, nausea and myalgias. By had more myalgia and also respiratory symptoms coughing and seen at urgent care dx with pneumonia and treated with azithromycin and augmentin. Pt worsened and was hospitalized Saturday. Covid tests negative x 3. Pt had anticoagulation and decadron for inflammatory lung disease. Respiratory viral panel negative. Responded well to stopping mesalamine and starting decadron and loratadine. Notably the cxr 02/09 minimal infiltrate cant see it on my monitor but read as bilat pneumonia. CT 02/11 severe bilat infiltrates. 02/14 cxr cardiomegaly and pulm edema but resolving infiltrates and resolved oxygen requirement. The CXR today 02/15 heart size smaller, pulm edema less small pl effusions.. Echo pending read. films reviewed with pt who and her Jonah mcclelland is studying to be an [employer] Discharge diagnosis: Mesalamine Toxic reaction (allergy) Reason for admission: Pulmonitis and respiratory failure Pertinent studies/significant findings: see above images labs no identified bacterial or viral infection Time Spent with Patient Time attestation: Total time spent providing and/or coordinating discharge services: Time spent: Greater than 30 minutes EXAM Constitutional Vitals: Temp Pulse Resp BP Pulse Ox 98.3 F 68 16 123/80 95 02/15/21 04:00 02/14/21 20:00 02/15/21 04:00 02/15/21 04:00 02/15/21 04:00 Additional findings Additional findings: GEN WDWN WF in NAD CV RRR Lungs CTA minimal decreased bases. clear with deep breaths. Abd soft NTND Calves no edema Ment alert and oriented x 3 and calm Skin warm and dry Discharge Data Data Completed and Pending Labs on day of discharge: Labs from last 24 hours 02/15/21 02/15/21 02/15/21 05:31 05:30 05:30 WBC 12.4 H RBC 3.59 Hgb 11.1 L Hct 33.4 L MCV 93.0 MCH 30.9 MCHC 33.2 RDW 12.0 Plt Count 293 MPV 10.0 Neut % (Auto) 80.1 H Lymph % (Auto) 13.6 L [place] % (Auto) 6.0 Eos % (Auto) 0.1 Baso % (Auto) 0.2 Lymph # (Auto) 1.69 [place] # (Auto) 0.74 Eos # (Auto) 0.01 Baso # (Auto) 0.03 Absolute Neutrophils 9.92 H Sodium 141 Potassium 3.4 Chloride 106 Carbon Dioxide 25 Anion Gap 10.0 BUN 7 Creatinine 0.5 L GFR Calculation 125 Glucose 107 H Calcium 8.3 L Total Bilirubin 0.3 AST 28 ALT 32 Alkaline Phosphatase 62 C-Reactive Protein 1.70 H Total Protein 5.1 L Albumin 3.0 L Globulin 2.1 L Albumin/Globulin Ratio 1.4 Procalcitonin 0.08 Preliminary micro results at discharge 02/11/21 10:44 Blood Culture - Preliminary Blood 02/11/21 10:38 Blood Culture - Preliminary Blood Discharge Plan Patient/Caregiver Discharge Instructions Instructions: Pneumonitis (GEN), Pneumonia (GEN), Acute Respiratory Failure (GEN) Prescriptions: New dexamethasone 4 mg Tablet 4 mg PO DAILY 3 Days Qty: 3 RF: 0 fluconazole 100 mg Tablet 100 mg PO DAILY PRN (Reason: vaginitis) Qty: 2 RF: 0 loratadine 10 mg Tablet 10 mg PO DAILY Qty: 90 RF: 0 Continued escitalopram oxalate 20 mg tablet See Rx Instructions .ROUTE .COMPLEX Qty: 30 RF: 2 zolpidem 5 mg tablet 5 mg PO QHS PRN (Reason: insomnia) Qty: 60 RF: 0 progesterone micronized 200 mg capsule 200 mg PO QHS RF: 0 testosterone 30 mg/actuation (1.5 mL) solution in metered pump w/janet 1 pump topical QDAY RF: 0 thyroid (pork) [CURB BUILDER Thyroid] 60 mg Tablet 60 mg PO BIDAC RF: 0 Discontinued budesonide 9 mg capsule, extended release 9 mg PO QAM RF: 0 mesalamine 1.2 gram tablet,delayed release (DR/EC) 1.2 g PO QID RF: 0 buspirone 10 mg tablet 10 mg PO BID PRN (Reason: anxiety) Qty: 30 RF: 3 ondansetron HCl [Zofran] 4 mg tablet 4 mg PO Q8H PRN (Reason: nausea and vomiting) Qty: 20 RF: 0 Follow Up Plan Follow up with: Annabel Choe ARNP [Primary Care Provider] - 02/17/21 3:15 pm Disposition: Home, Self-Care Hospital Course: pneumonitis tx with steroids and loratadine initial pneumonia dx treated with levaquin but procalcitonin now negative Health Concerns: Ulcerative colitis Plan of Treatment: take decadron 4mg daily for 3 days after stopped is reasonable first option to resumed rectal budesonide enemas as primary treatment for UC. Prognosis: Fair Discharge Orders: Discharge Order (Routine); Ordered 02/15/21 Ordered By: Herb LEE VTE Deep Vein Thrombosis/Pulmonary Embolism Present on Admission: No
[2021-02-16 19:10] LABS: Legionella pneumophilia Ag, Ur NOT DETECTED
[2021-02-17 15:46] LABS: M. Pneumoniae IGG 0.93
== END 2021-02-15 11:20 | disposition home or self-care (01) | DRG 205 ==
LOC: ED 10:09 → ICU 16:04
PROVIDERS: ADMIT Internal Medicine; ATTEND Internal Medicine

== ENCOUNTER 2022-01-02 09:24 | Observation (INO) ==
[2022-01-02] MEDS ORDERED: IOPAMIDOL 100 ML BOTTLE IV ONE (09:25)
--- NOTE | 2022-01-02 09:32 | Emergency Department Note ---
HPI General Chief complaint: Nausea/Vomiting/Diarrhea Stated complaint: nausea/vomiting Time Seen by Provider: 01/02/22 09:32 Source: patient Mode of arrival: wheelchair Limitations: no limitations History of Present Illness HPI Narrative: Narrative: Patient is a 36-year-old female with a past medical history for ulcerative colitis who presents to the emergency department due to nausea, vomiting, abdominal pain, and diarrhea. Patient presented from minor care due to concerns for continued nausea and vomiting despite 2 medications that he had tried. Upon presentation patient had tachycardia and borderline blood pressure. She states that she had nausea, vomiting, and abdominal pain in the epigastric and right upper quadrant regions. She denies any further radiation of the pain. She endorses diarrhea, and nursing states that patient had loss of continence of bowel upon presentation. Patient states that she feels unwell in general with aches throughout her body, but denies any other symptoms at this time. Related Data Home Medications Medication Instructions Recorded Confirmed progesterone micronized 200 mg 200 mg PO QHS 09/26/20 08/24/21 capsule testosterone 30 mg/actuation (1.5 1 pump topical QDAY 09/26/20 08/24/21 mL) transderm solution metered pump thyroid (pork) 60 mg tablet (FORESTRY HUNTER 60 mg PO QDAY 08/24/21 08/24/21 Thyroid) vedolizumab 300 mg intravenous 300 mg IV Q8W 08/24/21 08/24/21 solution (Entyvio) Previous Rx's Medication Instructions Recorded clindamycin phosphate 1 % lotion 1 applic topical BID #60 mL 06/21/21 fluoxetine 20 mg tablet 20 mg PO QDAY #90 tabs 08/24/21 albuterol sulfate 90 mcg/actuation 2 inh inhalation QID PRN shortness 08/29/21 breath activated powder inhaler of breath #1 ea methocarbamol 750 mg tablet 750 mg PO QID #60 tabs 10/12/21 zolpidem 5 mg tablet 5 mg PO QHS PRN insomnia #60 tabs 12/13/21 Allergies Allergy/AdvReac Type Severity Reaction Status Date / Time mesalamine Allergy Severe Other Verified 01/02/22 09:27 Review of Systems ROS ROS Narrative: Narrative: Constitutional: Denies fever or weakness Eyes: Denies eye pain or vision change ENT ED: Denies throat pain, hearing loss or rhinorrhea Cardiovascular: Denies chest pain or edema Respiratory: Denies shortness of breath or cough Gastrointestinal: Reports abdominal pain, nausea, vomiting and diarrhea; Denies constipation, hematochezia or melena Musculoskeletal: Denies back pain or myalgia Integumentary: Denies rash or lesions Neurological: Denies headache, weakness, numbness, confusion, abnormal gait or dizziness Endocrine: Reports fatigue; Denies polyuria PFSH Narrative Patient History Narrative: Narrative: Medical/Surgical/Family History All Active Problems (Updated 01/02/22 @ 17:18 by Mika Ramirez MD) Nausea and vomiting (Acute) Diarrhea (Acute) Fecal soiling due to fecal incontinence (Acute) Epigastric pain (Acute) Nausea & vomiting (Acute) Hypokalemia (Acute) Ulcerative proctitis (Acute) Bilateral pneumonia (Acute) Pneumonia (Acute) Tachycardia (Acute) Kidney stone (Acute) Folliculitis (Acute) Bleeding internal hemorrhoids (Acute) Headache (Acute) Nausea (Acute) Close exposure to COVID-19 virus (Acute) Anxiety (Chronic ~07/2014) Frequent UTI (Chronic) Encounter for surveillance of contraceptive pills (Chronic) Need vaccination-viral disease (Chronic) Symptomatic tachycardia (Chronic) Hyperlipidemia (Chronic) Chronic migraine without aura, intractable, with status migrainosus (Chronic) Well adult exam (Chronic) Hypothyroidism (Chronic) Fatigue (Chronic) Insomnia (Chronic) Depressed (Chronic) Nevus, atypical (Chronic) Weight gain (Chronic) Encounter for screening for malignant neoplasm of cervix (Chronic) Bladder spasm (Chronic) Candidiasis of vulva and vagina (Chronic) Chronic sinusitis, unspecified (Chronic) SOB (shortness of breath) (Chronic) Acute pneumonia (Chronic) Bronchospasm (Chronic) Medical History Acute pneumonia Anxiety (~07/2014) Bladder spasm Bronchospasm Candidiasis of vulva and vagina Chronic migraine without aura, intractable, with status migrainosus Chronic sinusitis, unspecified Depressed Encounter for screening for malignant neoplasm of cervix Encounter for surveillance of contraceptive pills Fatigue Frequent UTI Hyperlipidemia Hypothyroidism Insomnia Need vaccination-viral disease Nevus, atypical SOB (shortness of breath) Symptomatic tachycardia Ulcerative proctitis recent diagnosis and symptoms 6 months avoid mesalamine for now Weight gain Well adult exam Surgical History History of tonsillectomy and adenoidectomy Family History Father Asthma H/O ETOH abuse Grandfather Cancer Social History Smoking Status: Never smoker Alcohol Intake Frequency: holiday/special occasion only Substance Use: does not use Exam Narrative Narrative: Narrative: General Limitations: no limitations General appearance: Present alert and in no apparent distress; Absent anxious or appears intoxicated Head Head: Present atraumatic and normocephalic Eye Eye: Present PERRL and EOMI; Absent scleral icterus ENT ENT: Present mucous membranes moist; Absent nasal congestion Neck Neck: Present full ROM; Absent tenderness Chest Chest: Present normal inspection and symmetric chest wall rise; Absent tenderne ss Respiratory Respiratory: Present normal lung sounds bilaterally; Absent respiratory distress or accessory muscle use Cardiovascular Cardiovascular: Present regular rate, normal rhythm and normal heart sounds Adbominal Abdominal: Present soft, tenderness (Epigastric and right upper quadrant) and normal bowel sounds; Absent distention Extremities Extremities: Present normal inspection and full ROM Back Back: Present normal inspection and full ROM Neurological Neurological: Present alert and oriented X3 Psychiatric Psychiatric: Present normal affect and normal mood Skin Skin: Present warm (WNL), dry and normal color Course Vital Signs Vital signs: Vital Signs Temperature 97.1 F 01/02/22 09:24 Pulse Rate 88 01/02/22 09:24 Respiratory Rate 01/02/22 09:24 Blood Pressure 94/54 01/02/22 09:24 Pulse Oximetry (%) 100 01/02/22 09:24 Oxygen Delivery Method 01/02/22 09:24 Temperature 97.1 F 01/02/22 09:24 Pulse Rate 84 01/02/22 15:31 Respiratory Rate 20 01/02/22 09:24 Blood Pressure 93/58 01/02/22 15:31 Pulse Oximetry (%) 97 01/02/22 15:31 Oxygen Delivery Method 01/02/22 09:24 [facility] MDM Narrative Medical decision making narrative: Narrative: Patient is a 36-year-old female who presents to the emergency department due to nausea, vomiting, abdominal pain, and diarrhea. Differential diagnoses include, other disease, gastroenteritis, worsening of ulcerative colitis, although patient states this does not feel like her ulcerative colitis. Other differential diagnoses include urinary tract infection, liver disease, gastritis, although this is unlikely and would not explain her diarrhea. Patient's labs are significant for a leukocytosis of 24, mild elevation in alk phos, and bicarb of 20. Given patient's right upper quadrant tenderness, nausea, and vomiting and ultrasound was performed. This did not demonstrate findings consistent with cholecystitis or cholelithiasis. A CT scan was performed which did demonstrate findings concerning for potential hepatitis or cholangitis, but patient's liver labs including bilirubin were within normal limits. I spoke to Dr. Chong about these findings and patient's concerning vitals including initial tachycardia and borderline blood pressures. Given the CT findings he was concerned and felt that an MRCP may be helpful and that we may end up needing to talk to surgery. I did speak to Dr. Marino who stated that cholangitis is unlikely given normal liver lab findings. I again spoke with Dr. Chong who stated that he would see and evaluate the patient. Lab Data Result diagrams: 01/02/22 10:13 Labs: Lab Results 01/02/22 01/02/22 01/02/22 Range/Units 10:13 10:13 10:13 WBC 24.3 H (4.5-11.0) K/mcL RBC 5.02 (3.59-5.38) M/mcL Hgb 14.9 (11.2-15.7) g/dL Hct 45.3 H (34.1-44.9) % POC Hct (36-48) MCV 90.2 (80.0-100.0) fL MCH 29.7 (26.0-34.0) pg MCHC 32.9 (31.0-36.0) g/dL RDW 13.5 (11.5-14.5) % Plt Count 334 (140-440) K/mcL MPV 10.6 H (7.4-10.4) fL Immature Gran % (Auto) 0.5 (0.0-0.5) % Neut % (Auto) 86.3 H (38.0-78.0) % Lymph % (Auto) 8.8 L (15.5-49.0) % [place] % (Auto) 3.9 (1.0-12.0) % Eos % (Auto) 0.2 (0.0-7.0) % Baso % (Auto) 0.3 (0.0-2.0) % Lymph # (Auto) 2.14 (1.50-4.80) K/mcL [place] # (Auto) 0.95 H (0.10-0.90) K/mcL Eos # (Auto) 0.06 (0.00-0.70) K/mcL Baso # (Auto) 0.08 (0.00-0.30) K/mcL Immature Gran # 0.12 H (0.00-0.05) K/mcl Absolute Neutrophils 20.97 H (1.80-8.00) K/mcL PT 13.7 (11.9-14.5) sec INR 1.0 (0.9-1.1) VBG Lactic Acid (0.5-2.0) mmol/L POC Sodium (133-145) POC Potassium (3.3-5.1) POC Chloride (96-108) POC Total CO2 (22-30) POC BUN (6-20) POC Creatinine (0.6-1.2) POC Glucose (70-105) POC WB Ioniz Calcium (1.16-1.32) Total Bilirubin 0.6 (0.1-1.0) mg/dL Direct Bilirubin < 0.2 (0-0.3) mg/dL AST 28 (<32) U/L ALT 22 (<40) U/L Alkaline Phosphatase 122 H (39-117) U/L Total Protein 8.1 (5.9-8.4) gm/dL Albumin 4.8 (3.2-5.2) gm/dL Globulin 3.3 (2.2-3.7) gm/dL Lipase 39 (7-60) U/L Urine Color Urine Appearance Urine pH Ur Specific [place] Urine Protein Urine Glucose (UA) Urine Ketones Urine Occult Blood Urine Nitrate Ur Reducing Substances Urine Bilirubin Urine Ictotest Prot Sulfosalicylic Acd Urine Urobilinogen Ur Leukocyte Esterase Urine RBC Urine WBC Ur Squamous Epith Cells Ur Transition Epith Cell Ur Renal Epithelial Cell Calcium Carbonate Cryst Calcium Phosphate Cryst Calcium Oxalate Crystal Leucine Crystals Cystine Crystals Uric Acid Crystals Triple Phos Crystals Tyrosine Crystals Other Crystals Amorphous Crystals Urine Bacteria Cellular Casts Epithelial Casts Fatty Casts Hyaline Casts Granular Casts Waxy Casts Broad Casts RBC Casts WBC Casts Other Casts Urine Mucus Urine Trichomonas Ur Yeast w Hyphae Urine Yeast (Budding) Urine Sperm Ur Oval Fat Bodies Ur Free Fat Droplets Ur Culture Indicated? Hepatitis A IgM Ab (Non-Reactive) Hep Bs Antigen (Negative) Hep B Core IgM Ab (Non-Reactive) Hepatitis C Antibody (Non-Reactive) 01/02/22 01/02/22 01/02/22 Range/Units 10:20 13:29 13:30 WBC (4.5-11.0) K/mcL RBC (3.59-5.38) M/mcL Hgb (11.2-15.7) g/dL Hct (34.1-44.9) % POC Hct 47.0 (36-48) MCV (80.0-100.0) fL MCH (26.0-34.0) pg MCHC (31.0-36.0) g/dL RDW (11.5-14.5) % Plt Count (140-440) K/mcL MPV (7.4-10.4) fL Immature Gran % (Auto) (0.0-0.5) % Neut % (Auto) (38.0-78.0) % Lymph % (Auto) (15.5-49.0) % [place] % (Auto) (1.0-12.0) % Eos % (Auto) (0.0-7.0) % Baso % (Auto) (0.0-2.0) % Lymph # (Auto) (1.50-4.80) K/mcL [place] # (Auto) (0.10-0.90) K/mcL Eos # (Auto) (0.00-0.70) K/mcL Baso # (Auto) (0.00-0.30) K/mcL Immature Gran # (0.00-0.05) K/mcl Absolute Neutrophils (1.80-8.00) K/mcL PT (11.9-14.5) sec INR (0.9-1.1) VBG Lactic Acid (0.5-2.0) mmol/L POC Sodium 142 (133-145) POC Potassium 4.1 (3.3-5.1) POC Chloride 105 (96-108) POC Total CO2 23.0 (22-30) POC BUN 17 (6-20) POC Creatinine 0.6 (0.6-1.2) POC Glucose 138 H (70-105) POC WB Ioniz Calcium 1.17 (1.16-1.32) Total Bilirubin (0.1-1.0) mg/dL Direct Bilirubin (0-0.3) mg/dL AST (<32) U/L ALT (<40) U/L Alkaline Phosphatase (39-117) U/L Total Protein (5.9-8.4) gm/dL Albumin (3.2-5.2) gm/dL Globulin (2.2-3.7) gm/dL Lipase (7-60) U/L Urine Color Cancelled Urine Appearance Cancelled Urine pH Cancelled Ur Specific [place] Cancelled Urine Protein Cancelled Urine Glucose (UA) Cancelled Urine Ketones Cancelled Urine Occult Blood Cancelled Urine Nitrate Cancelled Ur Reducing Substances Cancelled Urine Bilirubin Cancelled Urine Ictotest Cancelled Prot Sulfosalicylic Acd Cancelled Urine Urobilinogen Cancelled Ur Leukocyte Esterase Cancelled Urine RBC Cancelled Urine WBC Cancelled Ur Squamous Epith Cells Cancelled Ur Transition Epith Cell Cancelled Ur Renal Epithelial Cell Cancelled Calcium Carbonate Cryst Cancelled Calcium Phosphate Cryst Cancelled Calcium Oxalate Crystal Cancelled Leucine Crystals Cancelled Cystine Crystals Cancelled Uric Acid Crystals Cancelled Triple Phos Crystals Cancelled Tyrosine Crystals Cancelled Other Crystals Cancelled Amorphous Crystals Cancelled Urine Bacteria Cancelled Cellular Casts Cancelled Epithelial Casts Cancelled Fatty Casts Cancelled Hyaline Casts Cancelled Granular Casts Cancelled Waxy Casts Cancelled Broad Casts Cancelled RBC Casts Cancelled WBC Casts Cancelled Other Casts Cancelled Urine Mucus Cancelled Urine Trichomonas Cancelled Ur Yeast w Hyphae Cancelled Urine Yeast (Budding) Cancelled Urine Sperm Cancelled Ur Oval Fat Bodies Cancelled Ur Free Fat Droplets Cancelled Ur Culture Indicated? Cancelled Hepatitis A IgM Ab Non-reactive (Non-Reactive) Hep Bs Antigen Negative (Negative) Hep B Core IgM Ab Non-reactive (Non-Reactive) Hepatitis C Antibody Non-reactive (Non-Reactive) 01/02/22 01/02/22 Range/Units 14:12 15:48 WBC (4.5-11.0) K/mcL RBC (3.59-5.38) M/mcL Hgb (11.2-15.7) g/dL Hct (34.1-44.9) % POC Hct (36-48) MCV (80.0-100.0) fL MCH (26.0-34.0) pg MCHC (31.0-36.0) g/dL RDW (11.5-14.5) % Plt Count (140-440) K/mcL MPV (7.4-10.4) fL Immature Gran % (Auto) (0.0-0.5) % Neut % (Auto) (38.0-78.0) % Lymph % (Auto) (15.5-49.0) % [place] % (Auto) (1.0-12.0) % Eos % (Auto) (0.0-7.0) % Baso % (Auto) (0.0-2.0) % Lymph # (Auto) (1.50-4.80) K/mcL [place] # (Auto) (0.10-0.90) K/mcL Eos # (Auto) (0.00-0.70) K/mcL Baso # (Auto) (0.00-0.30) K/mcL Immature Gran # (0.00-0.05) K/mcl Absolute Neutrophils (1.80-8.00) K/mcL PT (11.9-14.5) sec INR (0.9-1.1) VBG Lactic Acid 1.0 (0.5-2.0) mmol/L POC Sodium (133-145) POC Potassium (3.3-5.1) POC Chloride (96-108) POC Total CO2 (22-30) POC BUN (6-20) POC Creatinine (0.6-1.2) POC Glucose (70-105) POC WB Ioniz Calcium (1.16-1.32) Total Bilirubin (0.1-1.0) mg/dL Direct Bilirubin (0-0.3) mg/dL AST (<32) U/L ALT (<40) U/L Alkaline Phosphatase (39-117) U/L Total Protein (5.9-8.4) gm/dL Albumin (3.2-5.2) gm/dL Globulin (2.2-3.7) gm/dL Lipase (7-60) U/L Urine Color Yellow Urine Appearance Clear Urine pH 6.0 Ur Specific [place] 1.010 Urine Protein Negative Urine Glucose (UA) Negative Urine Ketones 15 mg/dl A Urine Occult Blood Negative Urine Nitrate Negative Ur Reducing Substances Urine Bilirubin Negative Urine Ictotest Prot Sulfosalicylic Acd Urine Urobilinogen Normal Ur Leukocyte Esterase Negative Urine RBC Urine WBC Ur Squamous Epith Cells Ur Transition Epith Cell Ur Renal Epithelial Cell Calcium Carbonate Cryst Calcium Phosphate Cryst Calcium Oxalate Crystal Leucine Crystals Cystine Crystals Uric Acid Crystals Triple Phos Crystals Tyrosine Crystals Other Crystals Amorphous Crystals Urine Bacteria Cellular Casts Epithelial Casts Fatty Casts Hyaline Casts Granular Casts Waxy Casts Broad Casts RBC Casts WBC Casts Other Casts Urine Mucus Urine Trichomonas Ur Yeast w Hyphae Urine Yeast (Budding) Urine Sperm Ur Oval Fat Bodies Ur Free Fat Droplets Ur Culture Indicated? No Hepatitis A IgM Ab (Non-Reactive) Hep Bs Antigen (Negative) Hep B Core IgM Ab (Non-Reactive) Hepatitis C Antibody (Non-Reactive) ED POC Tests ED POC Tests: NOLAN - Influenza A Negative NOLAN - Influenza B Negative NOLAN - SARS Antigen Negative Discharge Plan Patient/Caregiver Discharge Instructions Pt seen by FORESTRY HUNTER/PA only: No Clinical Impression: Nausea and vomiting, Diarrhea, Fecal soiling due to fecal incontinence Patient Disposition: Still a Patient Condition: Fair Follow up with: Annabel Choe ARNP [Primary Care Provider] - Prescriptions: No Action clindamycin phosphate 1 % lotion 1 applic topical BID Qty: 60 0RF albuterol sulfate 90 mcg/actuation aerosol powdr breath activated 2 inh inhalation QID PRN (Reason: shortness of breath) Qty: 1 2RF methocarbamol 750 mg tablet 750 mg PO QID Qty: 60 0RF zolpidem 5 mg tablet 5 mg PO QHS PRN (Reason: insomnia) Qty: 60 2RF Rx Instructions: may repeat x one every night as needed progesterone micronized 200 mg capsule 200 mg PO QHS testosterone 30 mg/actuation (1.5 mL) solution in metered pump w/janet 1 pump topical QDAY Rx Instructions: apply to ONE underarm area only; alternate with each dose Entyvio 300 mg recon soln 300 mg IV Q8W Rx Instructions: administer over 30 mins fluoxetine 20 mg tablet 20 mg PO QDAY Qty: 90 1RF thyroid (pork) [FORESTRY HUNTER Thyroid] 60 mg tablet 60 mg PO QDAY
[2022-01-02] MEDS ORDERED: 0.9 % SODIUM CHLORIDE 1,000 ML IV ONE ×2 (09:50→13:51)
[2022-01-02] MEDS ORDERED: METOCLOPRAMIDE 10 MG/2 ML VIAL IV ONE (10:20)
[2022-01-02 10:22] LABS: POC Calcium, Ionized 1.17 (1.16-1.32); POC Creatinine 0.6 (0.6-1.2); POC Potassium 4.1 (3.3-5.1)
[2022-01-02 10:57] LABS: Basophils # (Auto) 0.08 K/mcL (0.00-0.30); Basophils % (Auto) 0.3 % (0.0-2.0); Eosinophils # (Auto) 0.06 K/mcL (0.00-0.70); Eosinophils % (Auto) 0.2 % (0.0-7.0); Hematocrit 45.3 % (34.1-44.9); Hemoglobin 14.9 g/dL (11.2-15.7); Lymphocytes # (Auto) 2.14 K/mcL (1.50-4.80); Lymphocytes % (Auto) 8.8 % (15.5-49.0); Mean Cell Volume 90.2 fL (80.0-100.0); Mean Corpuscular HGB Conc 32.9 g/dL (31.0-36.0); Mean Platelet Volume 10.6 fL (7.4-10.4); Monocytes # (Auto) 0.95 K/mcL (0.10-0.90); Monocytes % (Auto) 3.9 % (1.0-12.0); Neutrophils % (Auto) 86.3 % (38.0-78.0); Platelet Count 334 K/mcL (140-440); RBC 5.02 M/mcL (3.59-5.38); Red Cell Distribution Width 13.5 % (11.5-14.5); WBC 24.3 K/mcL (4.5-11.0)
[2022-01-02] MEDS ORDERED: KETOROLAC 30 MG/ML VIAL IV ONE (10:57)
[2022-01-02] MEDS ORDERED: diphenhydrAMINE 50 MG/ML VIAL IV ONE (11:04)
[2022-01-02] MEDS ORDERED: PIPERACILLIN SODIUM/TAZOBACTAM 3.375 GM in DEXTROSE 5% IN WATER 50 ML IV ONE (11:05)
[2022-01-02 11:25] LABS: ALT/SGPT 22 U/L (<40); AST/SGOT 28 U/L (<32); Albumin 4.8 gm/dL (3.2-5.2); Alkaline Phosphatase 122 U/L (39-117); Bilirubin,Direct < 0.2 mg/dL (0-0.3); Bilirubin,Total 0.6 mg/dL (0.1-1.0); Globulin 3.3 gm/dL (2.2-3.7)
--- NOTE | 2022-01-02 11:51 | Ultrasound Report ---
History: Right upper quadrant pain FINDINGS: The liver is normal in size and homogeneous. There is normal blood flow in the hepatic and portal veins. No ascites is present. There is a fold in the fundus of the gallbladder. This is an incidental finding. The wall is 2.1 mm in thickness and the patient was nontender while scanning over the gallbladder. No stone or sludge are present within the lumen. Common bile duct is normal and measures 2.4 mm. Visualized portions of the pancreas are normal without evidence of a mass or inflammation. Overlying bowel gas obscures several segments. IMPRESSION: Normal exam Interpreted and Authenticated by: Magdaleno Aquino 01/02/22
--- NOTE | 2022-01-02 13:17 | Cat Scan Report ---
History: Right upper quadrant and epigastric pain with tenderness, ulcerative colitis, recent transfusions, nausea vomiting and diarrhea TECHNIQUE: Following injection of intravenous nonionic contrast the patient was imaged during the portal venous phase from above the diaphragm through the symphysis pubis. Sagittal and coronal reformats were created. The radiation exposure was limited using dose reduction technology. FINDINGS: The lung bases are clear. The right diaphragm is mildly elevated at this is of undetermined etiology. No subdiaphragmatic fluid collection is present. The liver is normal in size. There is mild periportal edema in the liver. The liver parenchyma is otherwise homogeneous. There is no evidence of a mass. The capsule is smooth. The hepatic and portal veins appear normal. There is no adenopathy or mass in the gregoria hepatis. The gallbladder is normal with no stones or thickening of the wall. The intra and extrahepatic bile ducts are small in caliber. The pancreas is normal without evidence of a mass or inflammation. The spleen is normal in size and homogeneous. The adrenals are normal. There are three small calyceal stones in the upper third of the left kidney. Largest measures 2 mm. Right kidney is normal. No mass, cyst, hydronephrosis or inflammation are present in either kidney. Both ureters are decompressed. Urinary bladder is nearly empty. Aorta and inferior vena cava are normal. There is no atherosclerotic disease. The stomach is normal and contains a small amount of fluid. There is moderate amount of fluid in nondilated small and large intestine. There is no evidence of active ulcerative colitis. There is no bowel obstruction or evidence of a mass. The appendix is nonvisualized. Patient has an IUD. This is abnormally placed into the myometrium in the right side at the fundus. The endometrium is abnormally thickened and heterogeneous. It measures up to 3.3 cm in width. There may be blood within the endometrial canal. The ovaries are difficult to clearly identify separate from adjacent bowel but are not enlarged. IMPRESSION: Subtle periportal edema in the liver. This may be seen with acute viral hepatitis or cholangitis. Small nonobstructing stones in the left kidney Abnormal placement of the IUD within the myometrium in the right side of the uterine fundus Abnormally thickened heterogeneous endometrium Dr. Ramirez was called with the report Interpreted and Authenticated by: Magdaleno Aquino 01/02/22
[2022-01-02 14:06] LABS: Hepatitis B Surface Antigen Negative (Negative); Hepatitis C Virus Antibody Non-Reactive (Non-Reactive)
--- NOTE | 2022-01-02 17:04 | Internal Med History&Physical ---
HPI History of Present Illness Patient information: Note initiated : 01/02/22 at 4:58 pm Service Date, if different from initiated Date: [] Patient: Cheyanne Moody a 36 y/o F admitted on for nausea/vomiting. Chief Complaint: [] History of present illness: borderline hypotension when she came inMsMatty Moody is a 36 year old F Presents the ED with nausea vomiting and diarrhea. Patient has history of ulcerative colitis and has not had a flare for some time and states this does not feel like her flares in the past and she has not had any bloody diarrhea. Patient states that last Saturday evening she had an episode nausea vomiting for 4 hours and then encounter went away and then from on she has been relatively well. She went to work out this morning that went to work at [employer] and then had a sudden episode of nausea vomiting and diarrhea. Diarrhea 4- 5 episodes multiple episodes of vomiting. Nonbloody diarrhea. She states she has had periumbilical abdominal pain likely related to the vomiting, she says she is not had any abdominal pain since she stopped vomiting. Laboratory work was noted for elevated white blood cell count. She had mild hypotension when she came in and was given several liters of IV fluid with improvement in her blood pressure. She was also mildly tachycardic when she came in and that showed some improvement fluids well. C. difficile is pending from the ED, she does not recall being on any antibiotics in the past 3 months. Review of Systems: Pertinent positives as above. Denies headache/fever/chills/chest pain/cough/dyspnea. Remaining 10 point review of system reviewed negative PFSH PFSH All Active Problems (Updated 01/02/22 @ 08:54 by Jennifer Pascual PA-C) Epigastric pain (Acute) Nausea & vomiting (Acute) Hypokalemia (Acute) Ulcerative proctitis (Acute) Bilateral pneumonia (Acute) Pneumonia (Acute) Tachycardia (Acute) Kidney stone (Acute) Folliculitis (Acute) Bleeding internal hemorrhoids (Acute) Headache (Acute) Nausea (Acute) Close exposure to COVID-19 virus (Acute) Anxiety (Chronic ~07/2014) Frequent UTI (Chronic) Encounter for surveillance of contraceptive pills (Chronic) Need vaccination-viral disease (Chronic) Symptomatic tachycardia (Chronic) Hyperlipidemia (Chronic) Chronic migraine without aura, intractable, with status migrainosus (Chronic) Well adult exam (Chronic) Hypothyroidism (Chronic) Fatigue (Chronic) Insomnia (Chronic) Depressed (Chronic) Nevus, atypical (Chronic) Weight gain (Chronic) Encounter for screening for malignant neoplasm of cervix (Chronic) Bladder spasm (Chronic) Candidiasis of vulva and vagina (Chronic) Chronic sinusitis, unspecified (Chronic) SOB (shortness of breath) (Chronic) Acute pneumonia (Chronic) Bronchospasm (Chronic) Medical History Acute pneumonia Anxiety (~07/2014) Bladder spasm Bronchospasm Candidiasis of vulva and vagina Chronic migraine without aura, intractable, with status migrainosus Chronic sinusitis, unspecified Depressed Encounter for screening for malignant neoplasm of cervix Encounter for surveillance of contraceptive pills Fatigue Frequent UTI Hyperlipidemia Hypothyroidism Insomnia Need vaccination-viral disease Nevus, atypical SOB (shortness of breath) Symptomatic tachycardia Ulcerative proctitis recent diagnosis and symptoms 6 months avoid mesalamine for now Weight gain Well adult exam Surgical History History of tonsillectomy and adenoidectomy Family History Father Asthma H/O ETOH abuse Grandfather Cancer Social History marital status: occupational status: employed occupation: RN at [employer] physical activity: other frequency: 5-6 times per week smoking status: Never smoker alcohol intake frequency: holiday/special occasion only substance use type: does not use seatbelt use: always MEDS/ALLERGIES Home Medications and Allergies Home Medications Medication Instructions Recorded Confirmed Type progesterone micronized 200 mg 200 mg PO QHS 09/26/20 08/24/21 History capsule testosterone 30 mg/actuation (1.5 1 pump topical QDAY 09/26/20 08/24/21 History mL) transderm solution metered pump clindamycin phosphate 1 % lotion 1 applic topical BID #60 mL 06/21/21 08/24/21 Rx fluoxetine 20 mg tablet 20 mg PO QDAY #90 tabs 08/24/21 08/24/21 Rx thyroid (pork) 60 mg tablet (PROCUREMENT COST COORDINATOR 60 mg PO QDAY 08/24/21 08/24/21 History Thyroid) vedolizumab 300 mg intravenous 300 mg IV Q8W 08/24/21 08/24/21 History solution (Entyvio) albuterol sulfate 90 mcg/actuation 2 inh inhalation QID PRN shortness 08/29/21 Rx breath activated powder inhaler of breath #1 ea methocarbamol 750 mg tablet 750 mg PO QID #60 tabs 10/12/21 Rx zolpidem 5 mg tablet 5 mg PO QHS PRN insomnia #60 tabs 12/13/21 Rx Allergies Allergy/AdvReac Type Severity Reaction Status Date / Time mesalamine Allergy Severe Other Verified 01/02/22 09:27 EXAM Constitutional Vitals: Temp Pulse Resp BP Pulse Ox O2 Del Method 97.1 F 84 20 93/58 97 01/02/22 09:24 01/02/22 15:31 01/02/22 09:24 01/02/22 15:31 01/02/22 15:31 01/02/22 09:24 Exam: General: Alert, Awake, No acute Distress Eyes/N/T: EOMI, PERRL, Head/Neck: neck supple, normocephalic atraumatic CV: RRR, No murmurs, normal s1/s2 Pulm: Clear b/l, no wheezing/rhonchi/rales Abd: soft, nontender, +BS x4 Ext: no clubbing/cyanosis/edema Neuro: Alert, no focal deficits, moves all extremities, CN 2-12 grossly intact, symmetrical strength b/l upper/lower, sensations intact b/l upper/lower Skin: warm/dry DATA Data Completed and Pending Labs: Labs from last 24 hours 01/02/22 01/02/22 01/02/22 15:48 14:12 13:30 WBC RBC Hgb Hct POC Hct MCV MCH MCHC RDW Plt Count MPV Immature Gran % (Auto) Neut % (Auto) Lymph % (Auto) Bollinger % (Auto) Eos % (Auto) Baso % (Auto) Lymph # (Auto) Bollinger # (Auto) Eos # (Auto) Baso # (Auto) Immature Gran # Absolute Neutrophils PT INR VBG Lactic Acid 1.0 POC Sodium POC Potassium POC Chloride POC Total CO2 POC BUN POC Creatinine POC Glucose POC WB Ioniz Calcium Total Bilirubin Direct Bilirubin AST ALT Alkaline Phosphatase C-Reactive Protein Total Protein Albumin Globulin Lipase Urine Color Pending Cancelled Urine Appearance Pending Cancelled Urine pH Pending Cancelled Ur Specific Sewell Pending Cancelled Urine Protein Pending Cancelled Urine Glucose (UA) Pending Cancelled Urine Ketones Pending Cancelled Urine Occult Blood Pending Cancelled Urine Nitrate Pending Cancelled Ur Reducing Substances Cancelled Urine Bilirubin Pending Cancelled Urine Ictotest Cancelled Prot Sulfosalicylic Acd Cancelled Urine Urobilinogen Pending Cancelled Ur Leukocyte Esterase Pending Cancelled Urine RBC Cancelled Urine WBC Cancelled Ur Squamous Epith Cells Cancelled Ur Transition Epith Cell Cancelled Ur Renal Epithelial Cell Cancelled Calcium Carbonate Cryst Cancelled Calcium Phosphate Cryst Cancelled Calcium Oxalate Crystal Cancelled Leucine Crystals Cancelled Cystine Crystals Cancelled Uric Acid Crystals Cancelled Triple Phos Crystals Cancelled Tyrosine Crystals Cancelled Other Crystals Cancelled Amorphous Crystals Cancelled Urine Bacteria Cancelled Cellular Casts Cancelled Epithelial Casts Cancelled Fatty Casts Cancelled Hyaline Casts Cancelled Granular Casts Cancelled Waxy Casts Cancelled Broad Casts Cancelled RBC Casts Cancelled WBC Casts Cancelled Other Casts Cancelled Urine Mucus Cancelled Urine Trichomonas Cancelled Ur Yeast w Hyphae Cancelled Urine Yeast (Budding) Cancelled Urine Sperm Cancelled Ur Oval Fat Bodies Cancelled Ur Free Fat Droplets Cancelled Ur Culture Indicated? Cancelled Hepatitis A IgM Ab Hep Bs Antigen Hep B Core IgM Ab Hepatitis C Antibody 01/02/22 01/02/22 01/02/22 13:29 10:20 10:13 WBC RBC Hgb Hct POC Hct 47.0 MCV MCH MCHC RDW Plt Count MPV Immature Gran % (Auto) Neut % (Auto) Lymph % (Auto) Bollinger % (Auto) Eos % (Auto) Baso % (Auto) Lymph # (Auto) Bollinger # (Auto) Eos # (Auto) Baso # (Auto) Immature Gran # Absolute Neutrophils PT INR VBG Lactic Acid POC Sodium 142 POC Potassium 4.1 POC Chloride 105 POC Total CO2 23.0 POC BUN 17 POC Creatinine 0.6 POC Glucose 138 H POC WB Ioniz Calcium 1.17 Total Bilirubin Direct Bilirubin AST ALT Alkaline Phosphatase C-Reactive Protein Pending Total Protein Albumin Globulin Lipase Urine Color Urine Appearance Urine pH Ur Specific Sewell Urine Protein Urine Glucose (UA) Urine Ketones Urine Occult Blood Urine Nitrate Ur Reducing Substances Urine Bilirubin Urine Ictotest Prot Sulfosalicylic Acd Urine Urobilinogen Ur Leukocyte Esterase Urine RBC Urine WBC Ur Squamous Epith Cells Ur Transition Epith Cell Ur Renal Epithelial Cell Calcium Carbonate Cryst Calcium Phosphate Cryst Calcium Oxalate Crystal Leucine Crystals Cystine Crystals Uric Acid Crystals Triple Phos Crystals Tyrosine Crystals Other Crystals Amorphous Crystals Urine Bacteria Cellular Casts Epithelial Casts Fatty Casts Hyaline Casts Granular Casts Waxy Casts Broad Casts RBC Casts WBC Casts Other Casts Urine Mucus Urine Trichomonas Ur Yeast w Hyphae Urine Yeast (Budding) Urine Sperm Ur Oval Fat Bodies Ur Free Fat Droplets Ur Culture Indicated? Hepatitis A IgM Ab Non-reactive Hep Bs Antigen Negative Hep B Core IgM Ab Non-reactive Hepatitis C Antibody Non-reactive 01/02/22 01/02/22 01/02/22 10:13 10:13 10:13 WBC 24.3 H RBC 5.02 Hgb 14.9 Hct 45.3 H POC Hct MCV 90.2 MCH 29.7 MCHC 32.9 RDW 13.5 Plt Count 334 MPV 10.6 H Immature Gran % (Auto) 0.5 Neut % (Auto) 86.3 H Lymph % (Auto) 8.8 L Bollinger % (Auto) 3.9 Eos % (Auto) 0.2 Baso % (Auto) 0.3 Lymph # (Auto) 2.14 Bollinger # (Auto) 0.95 H Eos # (Auto) 0.06 Baso # (Auto) 0.08 Immature Gran # 0.12 H Absolute Neutrophils 20.97 H PT Pending INR Pending VBG Lactic Acid POC Sodium POC Potassium POC Chloride POC Total CO2 POC BUN POC Creatinine POC Glucose POC WB Ioniz Calcium Total Bilirubin 0.6 Direct Bilirubin < 0.2 AST 28 ALT 22 Alkaline Phosphatase 122 H C-Reactive Protein Total Protein 8.1 Albumin 4.8 Globulin 3.3 Lipase 39 Urine Color Urine Appearance Urine pH Ur Specific Sewell Urine Protein Urine Glucose (UA) Urine Ketones Urine Occult Blood Urine Nitrate Ur Reducing Substances Urine Bilirubin Urine Ictotest Prot Sulfosalicylic Acd Urine Urobilinogen Ur Leukocyte Esterase Urine RBC Urine WBC Ur Squamous Epith Cells Ur Transition Epith Cell Ur Renal Epithelial Cell Calcium Carbonate Cryst Calcium Phosphate Cryst Calcium Oxalate Crystal Leucine Crystals Cystine Crystals Uric Acid Crystals Triple Phos Crystals Tyrosine Crystals Other Crystals Amorphous Crystals Urine Bacteria Cellular Casts Epithelial Casts Fatty Casts Hyaline Casts Granular Casts Waxy Casts Broad Casts RBC Casts WBC Casts Other Casts Urine Mucus Urine Trichomonas Ur Yeast w Hyphae Urine Yeast (Budding) Urine Sperm Ur Oval Fat Bodies Ur Free Fat Droplets Ur Culture Indicated? Hepatitis A IgM Ab Hep Bs Antigen Hep B Core IgM Ab Hepatitis C Antibody A/P Narrative A/P Narrative: A: *N/V/D: likely 2/2 gastroenteritis *Hypotension/tachycardia, mild: Responded to IV fluid in the ED *SIRS: 2/2 above *Ulcerative colitis: Patient states she has been stable since starting a medication from [facility]ne, GI specialist *Depression/anxiety: P: -IVF's -stool studies pending -empiric cipro/flagyl until stools studies return -Home medication reconciliation -ppx: ambulation Time Spent With Patient Time: Total time spent is greater than 50% in coordination of care (as documented) at patient's floor/unit and/or counseling patient:
[2022-01-02 17:06] LABS: Prothrombin Time 13.7 sec (11.9-14.5)
--- NOTE | 2022-01-02 17:45 | Emergency Department Note ---
Course Course Course Narrative: Patient was signed out to me at 1700 pending evaluation by hospitalist for possible admission. The patient was evaluated by the hospitalist who has admitted the patient. Vital Signs Vital signs: Vital Signs Temperature 97.1 F 01/02/22 09:24 Pulse Rate 88 01/02/22 09:24 Respiratory Rate 20 01/02/22 09:24 Blood Pressure 94/54 01/02/22 09:24 Pulse Oximetry (%) 100 01/02/22 09:24 Oxygen Delivery Method 01/02/22 09:24 Temperature 97.1 F 01/02/22 09:24 Pulse Rate 77 01/02/22 17:28 Respiratory Rate 01/02/22 09:24 Blood Pressure 80/51 01/02/22 17:28 Pulse Oximetry (%) 99 01/02/22 17:28 Oxygen Delivery Method 01/02/22 09:24 MDM MDM Narrative Medical decision making narrative: Narrative: Differential Diagnosis Differential Diagnosis: Gastroenteritis Medical Records Medical records reviewed: Yes I reviewed the patient's medical records. Lab Data Lab results reviewed: Yes I reviewed the patient's lab results. Result diagrams: 01/02/22 10:13 Labs: Lab Results 01/02/22 01/02/22 01/02/22 Range/Units 10:13 10:13 10:13 WBC 24.3 H (4.5-11.0) K/mcL RBC 5.02 (3.59-5.38) M/mcL Hgb 14.9 (11.2-15.7) g/dL Hct 45.3 H (34.1-44.9) % POC Hct (36-48) MCV 90.2 (80.0-100.0) fL MCH 29.7 (26.0-34.0) pg MCHC 32.9 (31.0-36.0) g/dL RDW 13.5 (11.5-14.5) % Plt Count 334 (140-440) K/mcL MPV 10.6 H (7.4-10.4) fL Immature Gran % (Auto) 0.5 (0.0-0.5) % Neut % (Auto) 86.3 H (38.0-78.0) % Lymph % (Auto) 8.8 L (15.5-49.0) % [place] % (Auto) 3.9 (1.0-12.0) % Eos % (Auto) 0.2 (0.0-7.0) % Baso % (Auto) 0.3 (0.0-2.0) % Lymph # (Auto) 2.14 (1.50-4.80) K/mcL [place] # (Auto) 0.95 H (0.10-0.90) K/mcL Eos # (Auto) 0.06 (0.00-0.70) K/mcL Baso # (Auto) 0.08 (0.00-0.30) K/mcL Immature Gran # 0.12 H (0.00-0.05) K/mcl Absolute Neutrophils 20.97 H (1.80-8.00) K/mcL PT 13.7 (11.9-14.5) sec INR 1.0 (0.9-1.1) VBG Lactic Acid (0.5-2.0) mmol/L POC Sodium (133-145) POC Potassium (3.3-5.1) POC Chloride (96-108) POC Total CO2 (22-30) POC BUN (6-20) POC Creatinine (0.6-1.2) POC Glucose (70-105) POC WB Ioniz Calcium (1.16-1.32) Total Bilirubin 0.6 (0.1-1.0) mg/dL Direct Bilirubin < 0.2 (0-0.3) mg/dL AST 28 (<32) U/L ALT 22 (<40) U/L Alkaline Phosphatase 122 H (39-117) U/L C-Reactive Protein (0.03-0.80) mg/dL Total Protein 8.1 (5.9-8.4) gm/dL Albumin 4.8 (3.2-5.2) gm/dL Globulin 3.3 (2.2-3.7) gm/dL Lipase 39 (7-60) U/L Procalcitonin (<0.10) ng/mL Urine Color Urine Appearance Urine pH Ur Specific [place] Urine Protein Urine Glucose (UA) Urine Ketones Urine Occult Blood Urine Nitrate Ur Reducing Substances Urine Bilirubin Urine Ictotest Prot Sulfosalicylic Acd Urine Urobilinogen Ur Leukocyte Esterase Urine RBC Urine WBC Ur Squamous Epith Cells Ur Transition Epith Cell Ur Renal Epithelial Cell Calcium Carbonate Cryst Calcium Phosphate Cryst Calcium Oxalate Crystal Leucine Crystals Cystine Crystals Uric Acid Crystals Triple Phos Crystals Tyrosine Crystals Other Crystals Amorphous Crystals Urine Bacteria Cellular Casts Epithelial Casts Fatty Casts Hyaline Casts Granular Casts Waxy Casts Broad Casts RBC Casts WBC Casts Other Casts Urine Mucus Urine Trichomonas Ur Yeast w Hyphae Urine Yeast (Budding) Urine Sperm Ur Oval Fat Bodies Ur Free Fat Droplets Ur Culture Indicated? Hepatitis A IgM Ab (Non-Reactive) Hep Bs Antigen (Negative) Hep B Core IgM Ab (Non-Reactive) Hepatitis C Antibody (Non-Reactive) 01/02/22 01/02/22 01/02/22 Range/Units 10:13 10:13 10:20 WBC (4.5-11.0) K/mcL RBC (3.59-5.38) M/mcL Hgb (11.2-15.7) g/dL Hct (34.1-44.9) % POC Hct 47.0 (36-48) MCV (80.0-100.0) fL MCH (26.0-34.0) pg MCHC (31.0-36.0) g/dL RDW (11.5-14.5) % Plt Count (140-440) K/mcL MPV (7.4-10.4) fL Immature Gran % (Auto) (0.0-0.5) % Neut % (Auto) (38.0-78.0) % Lymph % (Auto) (15.5-49.0) % [place] % (Auto) (1.0-12.0) % Eos % (Auto) (0.0-7.0) % Baso % (Auto) (0.0-2.0) % Lymph # (Auto) (1.50-4.80) K/mcL [place] # (Auto) (0.10-0.90) K/mcL Eos # (Auto) (0.00-0.70) K/mcL Baso # (Auto) (0.00-0.30) K/mcL Immature Gran # (0.00-0.05) K/mcl Absolute Neutrophils (1.80-8.00) K/mcL PT (11.9-14.5) sec INR (0.9-1.1) VBG Lactic Acid (0.5-2.0) mmol/L POC Sodium 142 (133-145) POC Potassium 4.1 (3.3-5.1) POC Chloride 105 (96-108) POC Total CO2 23.0 (22-30) POC BUN 17 (6-20) POC Creatinine 0.6 (0.6-1.2) POC Glucose 138 H (70-105) POC WB Ioniz Calcium 1.17 (1.16-1.32) Total Bilirubin (0.1-1.0) mg/dL Direct Bilirubin (0-0.3) mg/dL AST (<32) U/L ALT (<40) U/L Alkaline Phosphatase (39-117) U/L C-Reactive Protein < 0.30 (0.03-0.80) mg/dL Total Protein (5.9-8.4) gm/dL Albumin (3.2-5.2) gm/dL Globulin (2.2-3.7) gm/dL Lipase (7-60) U/L Procalcitonin 2.71 H (<0.10) ng/mL Urine Color Urine Appearance Urine pH Ur Specific [place] Urine Protein Urine Glucose (UA) Urine Ketones Urine Occult Blood Urine Nitrate Ur Reducing Substances Urine Bilirubin Urine Ictotest Prot Sulfosalicylic Acd Urine Urobilinogen Ur Leukocyte Esterase Urine RBC Urine WBC Ur Squamous Epith Cells Ur Transition Epith Cell Ur Renal Epithelial Cell Calcium Carbonate Cryst Calcium Phosphate Cryst Calcium Oxalate Crystal Leucine Crystals Cystine Crystals Uric Acid Crystals Triple Phos Crystals Tyrosine Crystals Other Crystals Amorphous Crystals Urine Bacteria Cellular Casts Epithelial Casts Fatty Casts Hyaline Casts Granular Casts Waxy Casts Broad Casts RBC Casts WBC Casts Other Casts Urine Mucus Urine Trichomonas Ur Yeast w Hyphae Urine Yeast (Budding) Urine Sperm Ur Oval Fat Bodies Ur Free Fat Droplets Ur Culture Indicated? Hepatitis A IgM Ab (Non-Reactive) Hep Bs Antigen (Negative) Hep B Core IgM Ab (Non-Reactive) Hepatitis C Antibody (Non-Reactive) 01/02/22 01/02/22 01/02/22 Range/Units 13:29 13:30 14:12 WBC (4.5-11.0) K/mcL RBC (3.59-5.38) M/mcL Hgb (11.2-15.7) g/dL Hct (34.1-44.9) % POC Hct (36-48) MCV (80.0-100.0) fL MCH (26.0-34.0) pg MCHC (31.0-36.0) g/dL RDW (11.5-14.5) % Plt Count (140-440) K/mcL MPV (7.4-10.4) fL Immature Gran % (Auto) (0.0-0.5) % Neut % (Auto) (38.0-78.0) % Lymph % (Auto) (15.5-49.0) % [place] % (Auto) (1.0-12.0) % Eos % (Auto) (0.0-7.0) % Baso % (Auto) (0.0-2.0) % Lymph # (Auto) (1.50-4.80) K/mcL [place] # (Auto) (0.10-0.90) K/mcL Eos # (Auto) (0.00-0.70) K/mcL Baso # (Auto) (0.00-0.30) K/mcL Immature Gran # (0.00-0.05) K/mcl Absolute Neutrophils (1.80-8.00) K/mcL PT (11.9-14.5) sec INR (0.9-1.1) VBG Lactic Acid 1.0 (0.5-2.0) mmol/L POC Sodium (133-145) POC Potassium (3.3-5.1) POC Chloride (96-108) POC Total CO2 (22-30) POC BUN (6-20) POC Creatinine (0.6-1.2) POC Glucose (70-105) POC WB Ioniz Calcium (1.16-1.32) Total Bilirubin (0.1-1.0) mg/dL Direct Bilirubin (0-0.3) mg/dL AST (<32) U/L ALT (<40) U/L Alkaline Phosphatase (39-117) U/L C-Reactive Protein (0.03-0.80) mg/dL Total Protein (5.9-8.4) gm/dL Albumin (3.2-5.2) gm/dL Globulin (2.2-3.7) gm/dL Lipase (7-60) U/L Procalcitonin (<0.10) ng/mL Urine Color Cancelled Urine Appearance Cancelled Urine pH Cancelled Ur Specific [place] Cancelled Urine Protein Cancelled Urine Glucose (UA) Cancelled Urine Ketones Cancelled Urine Occult Blood Cancelled Urine Nitrate Cancelled Ur Reducing Substances Cancelled Urine Bilirubin Cancelled Urine Ictotest Cancelled Prot Sulfosalicylic Acd Cancelled Urine Urobilinogen Cancelled Ur Leukocyte Esterase Cancelled Urine RBC Cancelled Urine WBC Cancelled Ur Squamous Epith Cells Cancelled Ur Transition Epith Cell Cancelled Ur Renal Epithelial Cell Cancelled Calcium Carbonate Cryst Cancelled Calcium Phosphate Cryst Cancelled Calcium Oxalate Crystal Cancelled Leucine Crystals Cancelled Cystine Crystals Cancelled Uric Acid Crystals Cancelled Triple Phos Crystals Cancelled Tyrosine Crystals Cancelled Other Crystals Cancelled Amorphous Crystals Cancelled Urine Bacteria Cancelled Cellular Casts Cancelled Epithelial Casts Cancelled Fatty Casts Cancelled Hyaline Casts Cancelled Granular Casts Cancelled Waxy Casts Cancelled Broad Casts Cancelled RBC Casts Cancelled WBC Casts Cancelled Other Casts Cancelled Urine Mucus Cancelled Urine Trichomonas Cancelled Ur Yeast w Hyphae Cancelled Urine Yeast (Budding) Cancelled Urine Sperm Cancelled Ur Oval Fat Bodies Cancelled Ur Free Fat Droplets Cancelled Ur Culture Indicated? Cancelled Hepatitis A IgM Ab Non-reactive (Non-Reactive) Hep Bs Antigen Negative (Negative) Hep B Core IgM Ab Non-reactive (Non-Reactive) Hepatitis C Antibody Non-reactive (Non-Reactive) 01/02/22 Range/Units 15:48 WBC (4.5-11.0) K/mcL RBC (3.59-5.38) M/mcL Hgb (11.2-15.7) g/dL Hct (34.1-44.9) % POC Hct (36-48) MCV (80.0-100.0) fL MCH (26.0-34.0) pg MCHC (31.0-36.0) g/dL RDW (11.5-14.5) % Plt Count (140-440) K/mcL MPV (7.4-10.4) fL Immature Gran % (Auto) (0.0-0.5) % Neut % (Auto) (38.0-78.0) % Lymph % (Auto) (15.5-49.0) % [place] % (Auto) (1.0-12.0) % Eos % (Auto) (0.0-7.0) % Baso % (Auto) (0.0-2.0) % Lymph # (Auto) (1.50-4.80) K/mcL [place] # (Auto) (0.10-0.90) K/mcL Eos # (Auto) (0.00-0.70) K/mcL Baso # (Auto) (0.00-0.30) K/mcL Immature Gran # (0.00-0.05) K/mcl Absolute Neutrophils (1.80-8.00) K/mcL PT (11.9-14.5) sec INR (0.9-1.1) VBG Lactic Acid (0.5-2.0) mmol/L POC Sodium (133-145) POC Potassium (3.3-5.1) POC Chloride (96-108) POC Total CO2 (22-30) POC BUN (6-20) POC Creatinine (0.6-1.2) POC Glucose (70-105) POC WB Ioniz Calcium (1.16-1.32) Total Bilirubin (0.1-1.0) mg/dL Direct Bilirubin (0-0.3) mg/dL AST (<32) U/L ALT (<40) U/L Alkaline Phosphatase (39-117) U/L C-Reactive Protein (0.03-0.80) mg/dL Total Protein (5.9-8.4) gm/dL Albumin (3.2-5.2) gm/dL Globulin (2.2-3.7) gm/dL Lipase (7-60) U/L Procalcitonin (<0.10) ng/mL Urine Color Yellow Urine Appearance Clear Urine pH 6.0 Ur Specific [place] 1.010 Urine Protein Negative Urine Glucose (UA) Negative Urine Ketones 15 mg/dl A Urine Occult Blood Negative Urine Nitrate Negative Ur Reducing Substances Urine Bilirubin Negative Urine Ictotest Prot Sulfosalicylic Acd Urine Urobilinogen Normal Ur Leukocyte Esterase Negative Urine RBC Urine WBC Ur Squamous Epith Cells Ur Transition Epith Cell Ur Renal Epithelial Cell Calcium Carbonate Cryst Calcium Phosphate Cryst Calcium Oxalate Crystal Leucine Crystals Cystine Crystals Uric Acid Crystals Triple Phos Crystals Tyrosine Crystals Other Crystals Amorphous Crystals Urine Bacteria Cellular Casts Epithelial Casts Fatty Casts Hyaline Casts Granular Casts Waxy Casts Broad Casts RBC Casts WBC Casts Other Casts Urine Mucus Urine Trichomonas Ur Yeast w Hyphae Urine Yeast (Budding) Urine Sperm Ur Oval Fat Bodies Ur Free Fat Droplets Ur Culture Indicated? No Hepatitis A IgM Ab (Non-Reactive) Hep Bs Antigen (Negative) Hep B Core IgM Ab (Non-Reactive) Hepatitis C Antibody (Non-Reactive) ED POC Tests ED POC Tests: NOLAN - Influenza A Negative NOLAN - Influenza B Negative NOLAN - SARS Antigen Negative Core Measures AMI Core Measures Followed: Yes Discharge Plan Patient/Caregiver Discharge Instructions Pt seen by IRRIGATIONIST DESIGNER/PA only: No Clinical Impression: Nausea and vomiting, Diarrhea, Fecal soiling due to fecal incontinence Patient Disposition: Xfer As Outpt/Obs ([facility]) Condition: Fair Follow up with: Annabel Choe ARNP [Primary Care Provider] - Prescriptions: No Action clindamycin phosphate 1 % lotion 1 applic topical BID Qty: 60 0RF albuterol sulfate 90 mcg/actuation aerosol powdr breath activated 2 inh inhalation QID PRN (Reason: shortness of breath) Qty: 1 2RF methocarbamol 750 mg tablet 750 mg PO QID Qty: 60 0RF zolpidem 5 mg tablet 5 mg PO QHS PRN (Reason: insomnia) Qty: 60 2RF Rx Instructions: may repeat x one every night as needed progesterone micronized 200 mg capsule 200 mg PO QHS testosterone 30 mg/actuation (1.5 mL) solution in metered pump w/jante 1 pump topical QDAY Rx Instructions: apply to ONE underarm area only; alternate with each dose Entyvio 300 mg recon soln 300 mg IV Q8W Rx Instructions: administer over 30 mins fluoxetine 20 mg tablet 20 mg PO QDAY Qty: 90 1RF thyroid (pork) [IRRIGATIONIST DESIGNER Thyroid] 60 mg tablet 60 mg PO QDAY
[2022-01-02] MEDS ORDERED: POTASSIUM CHLORIDE 40 MEQ in DEXTROSE 5% IN WATER 500 ML IV PRN (20:05)
[2022-01-02] MEDS ORDERED: POTASSIUM CHLORIDE 20 MEQ TABLET PO PRN ×2 (20:05)
[2022-01-02] MEDS ORDERED: ONDANSETRON 4 MG/2 ML VIAL IV PRN (20:05)
[2022-01-02] MEDS ORDERED: MAGNESIUM SULFATE 2 GM/50 ML BAG IV PRN (20:05)
[2022-01-02] MEDS ORDERED: HYDROcodone/APAP 5/325MG TABLET PO PRN (20:05)
[2022-01-02] MEDS ORDERED: ACETAMINOPHEN 325 MG TABLET PO PRN (20:05)
[2022-01-02] MEDS: 0.9 % SODIUM CHLORIDE 1,000 ML IV SCH (20:42)
[2022-01-02] MEDS: CIPROFLOXACIN 400 MG/200 ML BAG IV SCH (20:43)
[2022-01-02] MEDS: metroNIDAZOLE 500 MG/100 ML BAG IV SCH ×2 (20:44→22:21)
[2022-01-02] MEDS: 0.9 % SODIUM CHLORIDE 10 ML SYRINGE IV SCH (21:04)
[2022-01-03] MEDS: metroNIDAZOLE 500 MG/100 ML BAG IV SCH (05:18)
[2022-01-03] MEDS: 0.9 % SODIUM CHLORIDE 10 ML SYRINGE IV SCH (05:19)
[2022-01-03 06:58] LABS: Basophils # (Auto) 0.03 K/mcL (0.00-0.30); Basophils % (Auto) 0.3 % (0.0-2.0); Eosinophils % (Auto) 1.1 % (0.0-7.0); Hematocrit 34.6 % (34.1-44.9); Hemoglobin 11.4 g/dL (11.2-15.7); Lymphocytes # (Auto) 1.58 K/mcL (1.50-4.80); Lymphocytes % (Auto) 17.9 % (15.5-49.0); Mean Cell Volume 90.6 fL (80.0-100.0); Mean Corpuscular HGB Conc 32.9 g/dL (31.0-36.0); Mean Platelet Volume 10.4 fL (7.4-10.4); Monocytes # (Auto) 0.56 K/mcL (0.10-0.90); Monocytes % (Auto) 6.3 % (1.0-12.0); Neutrophils % (Auto) 74.1 % (38.0-78.0); Platelet Count 239 K/mcL (140-440); RBC 3.82 M/mcL (3.59-5.38); Red Cell Distribution Width 13.8 % (11.5-14.5); WBC 8.8 K/mcL (4.5-11.0)
[2022-01-03 07:15] LABS: ALT/SGPT 14 U/L (<40); AST/SGOT 19 U/L (<32); Albumin 3.6 gm/dL (3.2-5.2); Albumin/Globulin Ratio 1.8 (1.0-2.3); Alkaline Phosphatase 64 U/L (39-117); Bilirubin,Direct < 0.2 mg/dL (0-0.3); Bilirubin,Total 0.7 mg/dL (0.1-1.0); Blood Urea Nitrogen 12 mg/dL (6-20); Calcium 8.2 mg/dL (8.6-10.4); Carbon Dioxide 22 mmol/L (22-30); Chloride 107 mmol/L (96-108); Glomerular Filtration Rate 117; Glucose 88 mg/dL (70-105); Lactate Dehydrogenase 150 U/L (135-225); Phosphorous 2.5 mg/dL (2.5-4.5); Triglycerides 60 mg/dL (<150); Uric Acid 4.2 mg/dL (2.5-8.0)
--- NOTE | 2022-01-03 08:10 | Internal Med Progress Note ---
SUBJECTIVE Subjective Patient information: Note initiated : 01/03/22 at 8:09 am Service Date, if different from initiated Date: [] Patient: Cheyanne Moody 36 y/o F admitted on 01/02/22 for nausea/vomiting. Chief Complaint: [] Constitutional Vitals: Vital Signs Temp Pulse Resp BP Pulse Ox O2 Del Method 98.5 F 103 H 16 104/67 97 01/03/22 03:30 01/03/22 03:30 01/03/22 03:30 01/03/22 03:30 01/03/22 03:30 01/03/22 03:30 Period Temp Pulse Resp BP Sys/[place] Pulse Ox O2 Del Method O2 Flow Rate Last 24 Hr 97.1 F-99.0 F 77-103 16-20 76-104/47-73 95-100 Room Air-Room Air Intake and Output 01/02/22 01/03/22 01/03/22 21:59 05:59 13:59 Intake Total 1000 400 Output Total 550 Balance 1000 -150 Weight 66.678 kg Intake & Output: Intake & Output 01/02/22 01/03/22 01/03/22 21:59 05:59 13:59 Intake Total 1000 400 Output Total 550 Balance 1000 -150 Weight 66.678 kg Intake: IV 1000 300 Sodium Chloride 0.9% 1,000 ml @ 1000 Wide Open IV BOLUS ONE Rx#: [id number] Oral 100 Output: Void Amount 550 # of times incontinent of urine 0 Other: Urine Appearance Clear Urine Color Dark Jennifer # Voids 0 OBJ DATA Labs CBC & Chem 7: 01/03/22 05:31 01/03/22 05:31 Labs: Abnormal Lab Results 01/03/22 01/03/22 01/02/22 05:40 05:31 15:48 WBC Hct MPV Neut % (Auto) Lymph % (Auto) [place] # (Auto) Immature Gran # Absolute Neutrophils POC Glucose Calcium 8.2 L Alkaline Phosphatase Total Protein 5.6 L Globulin 2.0 L Procalcitonin 3.55 H Urine Ketones 15 mg/dl A 01/02/22 01/02/22 01/02/22 10:20 10:13 10:13 WBC Hct MPV Neut % (Auto) Lymph % (Auto) [place] # (Auto) Immature Gran # Absolute Neutrophils POC Glucose 138 H Calcium Alkaline Phosphatase 122 H Total Protein Globulin Procalcitonin 2.71 H Urine Ketones 01/02/22 10:13 WBC 24.3 H Hct 45.3 H MPV 10.6 H Neut % (Auto) 86.3 H Lymph % (Auto) 8.8 L [place] # (Auto) 0.95 H Immature Gran # 0.12 H Absolute Neutrophils 20.97 H POC Glucose Calcium Alkaline Phosphatase Total Protein Globulin Procalcitonin Urine Ketones Meds: Medications Acetaminophen (Acetaminophen 325 Mg Tablet) 650 mg PO Q6HP PRN; Protocol PRN Reason: Per Pain Protocol/Fever > 101 Hydrocodone Bitart/Acetaminophen (Hydrocodone/Apap 5/325mg Tablet) 1 tab PO Q4HP PRN PRN Reason: PAIN LEVEL 3-6 Potassium Chloride 40 meq/ (Dextrose) 520 mls @ 130 mls/hr IV UD PRN PRN Reason: Potassium < 3 Magnesium Sulfate (Magnesium Sulfate) 2 gm in 50 mls @ 50 mls/hr IV UD PRN PRN Reason: Magnesium </= 1.6 Sodium Chloride (Sodium Chloride 0.9%) 1,000 mls @ 75 mls/hr IV .[id number] EVELIN Stop: 01/03/22 22:44 Last Admin: 01/02/22 20:42 Dose: 75 mls/hr Ciprofloxacin (Cipro) 400 mg in 200 mls @ 200 mls/hr IV Q12H EVELIN; Protocol Last Infusion: 01/02/22 22:27 Dose: Infused Metronidazole (Flagyl) 500 mg in 100 mls @ 100 mls/hr IV Q8H EVELIN; Protocol Last Admin: 01/03/22 05:18 Dose: 100 mls/hr Ondansetron HCl (Ondansetron 4 Mg/2 Ml Vial) 4 mg IV Q4HP PRN PRN Reason: Nausea And Vomiting Last Admin: 01/02/22 20:47 Dose: 4 mg Potassium Chloride (Potassium Chloride 20 Meq Tablet) 40 meq PO UD PRN PRN Reason: Potssium is 3-3.5 Potassium Chloride (Potassium Chloride 20 Meq Tablet) 40 meq PO UD PRN PRN Reason: Potassium < 3 Sodium Chloride (0.9 % Sodium Chloride 10 Ml Syringe) 10 ml IV Q8 EVELIN Last Admin: 01/03/22 05:19 Dose: Not Given A/P Narrative A/P Narrative: A: *N/V/D: likely 2/2 gastroenteritis *Hypotension/tachycardia, mild: Responded to IV fluid in the ED *SIRS: 2/2 above *Ulcerative colitis: Patient states she has been stable since starting a medication from Rema Lynne, GI specialist *Depression/anxiety: P: -IVF's -stool studies pending -empiric cipro/flagyl until stools studies return -Home medication reconciliation -ppx: ambulation Time Spent With Patient Time: Total time spent is greater than 50% in coordination of care (as documented) at patient's floor/unit and/or counseling patient:
[2022-01-03] MEDS: CIPROFLOXACIN 400 MG/200 ML BAG IV SCH (08:56)
--- NOTE | 2022-01-03 09:11 | Discharge Summary ---
Discharge Provider Provider IMPORTANT FOLLOW-UP INFORMATION FOR PCP: Patient information: Note initiated : 01/03/22 at 9:08 am Service Date, if different from initiated Date: [] Patient: Cheyanne Moody 36 y/o F admitted on 01/02/22 for nausea/vomiting. Chief Complaint: [] Date of admission: 01/02/22 19:12 Discharge date: 01/03/22 Primary care physician: CHEYENNE Bonner Consults: 01/02/22 Consult to Physician [CONS] Stat Comment: Consulting Provider: Aryan Chong Reason For Exam: Physician to Consult COURSE Hospital Course Hospital course: History of present illness: borderline hypotension when she came inMsMatty Moody is a 36 year old F Presents the ED with nausea vomiting and diarrhea. Patient has history of ulcerative colitis and has not had a flare for some time and states this does not feel like her flares in the past and she has not had any bloody diarrhea. Patient states that last Saturday evening she had an episode nausea vomiting for 4 hours and then encounter went away and then from on she has been relatively well. She went to work out this morning that went to work at [employer] and then had a sudden episode of nausea vomiting and diarrhea. Diarrhea 4- 5 episodes multiple episodes of vomiting. Nonbloody diarrhea. She states she has had periumbilical abdominal pain likely related to the vomiting, she says she is not had any abdominal pain since she stopped vomiting. Laboratory work was noted for elevated white blood cell count. She had mild hypotension when she came in and was given several liters of IV fluid with improvement in her blood pressure. She was also mildly tachycardic when she came in and that showed some improvement fluids well. C. difficile is pending from the ED, she does not recall being on any antibiotics in the past 3 months. 01/03 Patient stool studies negative yesterday. Procalcitonin elevated. Start antibiotics yesterday. Leukocytosis completely resolved. Vital signs stable. Afebrile. Patient feeling much better. Wanting to go home. A: *N/V/D: 2/2 gastroenteritis -stool studies neg, elevated pct *SIRS: resolved *Ulcerative colitis: Patient states she has been stable since starting a medication from Rema Lynne, GI specialist *Depression/anxiety: P: -abx Discharge diagnosis: Gastroenteritis SIRS Secondary discharge diagnosis: Colitis depression anxiety Time Spent with Patient Time attestation: Total time spent providing and/or coordinating discharge services: Time spent: Greater than 30 minutes EXAM Constitutional Vitals: Temp Pulse Resp BP Pulse Ox O2 Del Method 98.5 F 82 17 99/65 96 01/03/22 08:00 01/03/22 08:00 01/03/22 08:00 01/03/22 08:00 01/03/22 08:00 01/03/22 08:00 Discharge Data Data Completed and Pending Labs on day of discharge: Labs from last 24 hours 01/03/22 01/03/22 01/03/22 05:40 05:31 05:31 WBC 8.8 RBC 3.82 Hgb 11.4 Hct 34.6 POC Hct MCV 90.6 MCH 29.8 MCHC 32.9 RDW 13.8 Plt Count 239 MPV 10.4 Immature Gran % (Auto) 0.3 Neut % (Auto) 74.1 Lymph % (Auto) 17.9 Barren % (Auto) 6.3 Eos % (Auto) 1.1 Baso % (Auto) 0.3 Lymph # (Auto) 1.58 Barren # (Auto) 0.56 Eos # (Auto) 0.10 Baso # (Auto) 0.03 Immature Gran # 0.03 Absolute Neutrophils 6.52 PT INR VBG Lactic Acid POC Sodium Sodium 141 POC Potassium Potassium 3.3 POC Chloride Chloride 107 Carbon Dioxide 22 POC Total CO2 Anion Gap 12.0 POC BUN BUN 12 Creatinine 0.6 POC Creatinine GFR Calculation 117 Glucose 88 POC Glucose Uric Acid 4.2 Calcium 8.2 L POC WB Ioniz Calcium Phosphorus 2.5 Magnesium 2.0 Total Bilirubin 0.7 Direct Bilirubin < 0.2 GGT 9 AST 19 ALT 14 Alkaline Phosphatase 64 Lactate Dehydrogenase 150 C-Reactive Protein Total Protein 5.6 L Albumin 3.6 Globulin 2.0 L Albumin/Globulin Ratio 1.8 Triglycerides 60 Lipase Procalcitonin 3.55 H Urine Color Urine Appearance Urine pH Ur Specific [place] Urine Protein Urine Glucose (UA) Urine Ketones Urine Occult Blood Urine Nitrate Ur Reducing Substances Urine Bilirubin Urine Ictotest Prot Sulfosalicylic Acd Urine Urobilinogen Ur Leukocyte Esterase Urine RBC Urine WBC Ur Squamous Epith Cells Ur Transition Epith Cell Ur Renal Epithelial Cell Calcium Carbonate Cryst Calcium Phosphate Cryst Calcium Oxalate Crystal Leucine Crystals Cystine Crystals Uric Acid Crystals Triple Phos Crystals Tyrosine Crystals Other Crystals Amorphous Crystals Urine Bacteria Cellular Casts Epithelial Casts Fatty Casts Hyaline Casts Granular Casts Waxy Casts Broad Casts RBC Casts WBC Casts Other Casts Urine Mucus Urine Trichomonas Ur Yeast w Hyphae Urine Yeast (Budding) Urine Sperm Ur Oval Fat Bodies Ur Free Fat Droplets Ur Culture Indicated? Hepatitis A IgM Ab Hep Bs Antigen Hep B Core IgM Ab Hepatitis C Antibody 01/02/22 01/02/22 01/02/22 15:48 14:12 13:30 WBC RBC Hgb Hct POC Hct MCV MCH MCHC RDW Plt Count MPV Immature Gran % (Auto) Neut % (Auto) Lymph % (Auto) Barren % (Auto) Eos % (Auto) Baso % (Auto) Lymph # (Auto) Barren # (Auto) Eos # (Auto) Baso # (Auto) Immature Gran # Absolute Neutrophils PT INR VBG Lactic Acid 1.0 POC Sodium Sodium POC Potassium Potassium POC Chloride Chloride Carbon Dioxide POC Total CO2 Anion Gap POC BUN BUN Creatinine POC Creatinine GFR Calculation Glucose POC Glucose Uric Acid Calcium POC WB Ioniz Calcium Phosphorus Magnesium Total Bilirubin Direct Bilirubin GGT AST ALT Alkaline Phosphatase Lactate Dehydrogenase C-Reactive Protein Total Protein Albumin Globulin Albumin/Globulin Ratio Triglycerides Lipase Procalcitonin Urine Color Yellow Cancelled Urine Appearance Clear Cancelled Urine pH 6.0 Cancelled Ur Specific [place] 1.010 Cancelled Urine Protein Negative Cancelled Urine Glucose (UA) Negative Cancelled Urine Ketones 15 mg/dl A Cancelled Urine Occult Blood Negative Cancelled Urine Nitrate Negative Cancelled Ur Reducing Substances Cancelled Urine Bilirubin Negative Cancelled Urine Ictotest Cancelled Prot Sulfosalicylic Acd Cancelled Urine Urobilinogen Normal Cancelled Ur Leukocyte Esterase Negative Cancelled Urine RBC Cancelled Urine WBC Cancelled Ur Squamous Epith Cells Cancelled Ur Transition Epith Cell Cancelled Ur Renal Epithelial Cell Cancelled Calcium Carbonate Cryst Cancelled Calcium Phosphate Cryst Cancelled Calcium Oxalate Crystal Cancelled Leucine Crystals Cancelled Cystine Crystals Cancelled Uric Acid Crystals Cancelled Triple Phos Crystals Cancelled Tyrosine Crystals Cancelled Other Crystals Cancelled Amorphous Crystals Cancelled Urine Bacteria Cancelled Cellular Casts Cancelled Epithelial Casts Cancelled Fatty Casts Cancelled Hyaline Casts Cancelled Granular Casts Cancelled Waxy Casts Cancelled Broad Casts Cancelled RBC Casts Cancelled WBC Casts Cancelled Other Casts Cancelled Urine Mucus Cancelled Urine Trichomonas Cancelled Ur Yeast w Hyphae Cancelled Urine Yeast (Budding) Cancelled Urine Sperm Cancelled Ur Oval Fat Bodies Cancelled Ur Free Fat Droplets Cancelled Ur Culture Indicated? No Cancelled Hepatitis A IgM Ab Hep Bs Antigen Hep B Core IgM Ab Hepatitis C Antibody 01/02/22 01/02/22 01/02/22 13:29 10:20 10:13 WBC RBC Hgb Hct POC Hct 47.0 MCV MCH MCHC RDW Plt Count MPV Immature Gran % (Auto) Neut % (Auto) Lymph % (Auto) Barren % (Auto) Eos % (Auto) Baso % (Auto) Lymph # (Auto) Barren # (Auto) Eos # (Auto) Baso # (Auto) Immature Gran # Absolute Neutrophils PT INR VBG Lactic Acid POC Sodium 142 Sodium POC Potassium 4.1 Potassium POC Chloride 105 Chloride Carbon Dioxide POC Total CO2 23.0 Anion Gap POC BUN 17 BUN Creatinine POC Creatinine 0.6 GFR Calculation Glucose POC Glucose 138 H Uric Acid Calcium POC WB Ioniz Calcium 1.17 Phosphorus Magnesium Total Bilirubin Direct Bilirubin GGT AST ALT Alkaline Phosphatase Lactate Dehydrogenase C-Reactive Protein Total Protein Albumin Globulin Albumin/Globulin Ratio Triglycerides Lipase Procalcitonin 2.71 H Urine Color Urine Appearance Urine pH Ur Specific [place] Urine Protein Urine Glucose (UA) Urine Ketones Urine Occult Blood Urine Nitrate Ur Reducing Substances Urine Bilirubin Urine Ictotest Prot Sulfosalicylic Acd Urine Urobilinogen Ur Leukocyte Esterase Urine RBC Urine WBC Ur Squamous Epith Cells Ur Transition Epith Cell Ur Renal Epithelial Cell Calcium Carbonate Cryst Calcium Phosphate Cryst Calcium Oxalate Crystal Leucine Crystals Cystine Crystals Uric Acid Crystals Triple Phos Crystals Tyrosine Crystals Other Crystals Amorphous Crystals Urine Bacteria Cellular Casts Epithelial Casts Fatty Casts Hyaline Casts Granular Casts Waxy Casts Broad Casts RBC Casts WBC Casts Other Casts Urine Mucus Urine Trichomonas Ur Yeast w Hyphae Urine Yeast (Budding) Urine Sperm Ur Oval Fat Bodies Ur Free Fat Droplets Ur Culture Indicated? Hepatitis A IgM Ab Non-reactive Hep Bs Antigen Negative Hep B Core IgM Ab Non-reactive Hepatitis C Antibody Non-reactive 01/02/22 01/02/22 01/02/22 10:13 10:13 10:13 WBC RBC Hgb Hct POC Hct MCV MCH MCHC RDW Plt Count MPV Immature Gran % (Auto) Neut % (Auto) Lymph % (Auto) Barren % (Auto) Eos % (Auto) Baso % (Auto) Lymph # (Auto) Barren # (Auto) Eos # (Auto) Baso # (Auto) Immature Gran # Absolute Neutrophils PT 13.7 INR 1.0 VBG Lactic Acid POC Sodium Sodium POC Potassium Potassium POC Chloride Chloride Carbon Dioxide POC Total CO2 Anion Gap POC BUN BUN Creatinine POC Creatinine GFR Calculation Glucose POC Glucose Uric Acid Calcium POC WB Ioniz Calcium Phosphorus Magnesium Total Bilirubin 0.6 Direct Bilirubin < 0.2 GGT AST 28 ALT 22 Alkaline Phosphatase 122 H Lactate Dehydrogenase C-Reactive Protein < 0.30 Total Protein 8.1 Albumin 4.8 Globulin 3.3 Albumin/Globulin Ratio Triglycerides Lipase 39 Procalcitonin Urine Color Urine Appearance Urine pH Ur Specific [place] Urine Protein Urine Glucose (UA) Urine Ketones Urine Occult Blood Urine Nitrate Ur Reducing Substances Urine Bilirubin Urine Ictotest Prot Sulfosalicylic Acd Urine Urobilinogen Ur Leukocyte Esterase Urine RBC Urine WBC Ur Squamous Epith Cells Ur Transition Epith Cell Ur Renal Epithelial Cell Calcium Carbonate Cryst Calcium Phosphate Cryst Calcium Oxalate Crystal Leucine Crystals Cystine Crystals Uric Acid Crystals Triple Phos Crystals Tyrosine Crystals Other Crystals Amorphous Crystals Urine Bacteria Cellular Casts Epithelial Casts Fatty Casts Hyaline Casts Granular Casts Waxy Casts Broad Casts RBC Casts WBC Casts Other Casts Urine Mucus Urine Trichomonas Ur Yeast w Hyphae Urine Yeast (Budding) Urine Sperm Ur Oval Fat Bodies Ur Free Fat Droplets Ur Culture Indicated? Hepatitis A IgM Ab Hep Bs Antigen Hep B Core IgM Ab Hepatitis C Antibody 01/02/22 10:13 WBC 24.3 H RBC 5.02 Hgb 14.9 Hct 45.3 H POC Hct MCV 90.2 MCH 29.7 MCHC 32.9 RDW 13.5 Plt Count 334 MPV 10.6 H Immature Gran % (Auto) 0.5 Neut % (Auto) 86.3 H Lymph % (Auto) 8.8 L Barren % (Auto) 3.9 Eos % (Auto) 0.2 Baso % (Auto) 0.3 Lymph # (Auto) 2.14 Barren # (Auto) 0.95 H Eos # (Auto) 0.06 Baso # (Auto) 0.08 Immature Gran # 0.12 H Absolute Neutrophils 20.97 H PT INR VBG Lactic Acid POC Sodium Sodium POC Potassium Potassium POC Chloride Chloride Carbon Dioxide POC Total CO2 Anion Gap POC BUN BUN Creatinine POC Creatinine GFR Calculation Glucose POC Glucose Uric Acid Calcium POC WB Ioniz Calcium Phosphorus Magnesium Total Bilirubin Direct Bilirubin GGT AST ALT Alkaline Phosphatase Lactate Dehydrogenase C-Reactive Protein Total Protein Albumin Globulin Albumin/Globulin Ratio Triglycerides Lipase Procalcitonin Urine Color Urine Appearance Urine pH Ur Specific [place] Urine Protein Urine Glucose (UA) Urine Ketones Urine Occult Blood Urine Nitrate Ur Reducing Substances Urine Bilirubin Urine Ictotest Prot Sulfosalicylic Acd Urine Urobilinogen Ur Leukocyte Esterase Urine RBC Urine WBC Ur Squamous Epith Cells Ur Transition Epith Cell Ur Renal Epithelial Cell Calcium Carbonate Cryst Calcium Phosphate Cryst Calcium Oxalate Crystal Leucine Crystals Cystine Crystals Uric Acid Crystals Triple Phos Crystals Tyrosine Crystals Other Crystals Amorphous Crystals Urine Bacteria Cellular Casts Epithelial Casts Fatty Casts Hyaline Casts Granular Casts Waxy Casts Broad Casts RBC Casts WBC Casts Other Casts Urine Mucus Urine Trichomonas Ur Yeast w Hyphae Urine Yeast (Budding) Urine Sperm Ur Oval Fat Bodies Ur Free Fat Droplets Ur Culture Indicated? Hepatitis A IgM Ab Hep Bs Antigen Hep B Core IgM Ab Hepatitis C Antibody Discharge Plan Patient/Caregiver Discharge Instructions Activity: increase activity as tolerated Diet: Regular Diet Prescriptions: New ciprofloxacin HCl [Cipro] 500 mg tablet 500 mg PO BID Qty: 8 0RF metronidazole 500 mg tablet 500 mg PO Q8H Qty: 12 0RF Continued clindamycin phosphate 1 % lotion 1 applic topical BID Qty: 60 0RF albuterol sulfate 90 mcg/actuation aerosol powdr breath activated 2 inh inhalation QID PRN (Reason: shortness of breath) Qty: 1 2RF methocarbamol 750 mg tablet 750 mg PO QID Qty: 60 0RF zolpidem 5 mg tablet 5 mg PO QHS PRN (Reason: insomnia) Qty: 60 2RF Rx Instructions: may repeat x one every night as needed progesterone micronized 200 mg capsule 200 mg PO QHS testosterone 30 mg/actuation (1.5 mL) solution in metered pump w/janet 1 pump topical QDAY Rx Instructions: apply to ONE underarm area only; alternate with each dose Entyvio 300 mg recon soln 300 mg IV Q8W Rx Instructions: administer over 30 mins fluoxetine 20 mg tablet 20 mg PO QDAY Qty: 90 1RF thyroid (pork) [[employer] Thyroid] 60 mg tablet 60 mg PO QDAY Follow Up Plan Follow up with: Annabel Choe ARNP [Primary Care Provider] - Patient Disposition: Home, Self-Care Prognosis: Fair Overall status at discharge: patient is progressing back to baseline Discharge Orders: Discharge Order (Routine); Ordered 01/03/22 Ordered By: Aryan Chong
[2022-01-03] MEDS ORDERED: FLUCONAZOLE 150 MG TABLET PO SCH (09:15)
[2022-01-03] MEDS: 0.9 % SODIUM CHLORIDE 1,000 ML IV SCH (09:45)
--- NOTE | 2022-01-05 07:26 | EKG ---
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 Measurements Intervals [place] Rate: 78 P: 43 MI: 131 QRS: 54 QRSD: 96 T: 36 QT: 389 QTc: 444 Interpretive Statements Sinus rhythm Probable left atrial enlargement Electronically Signed On 01-05-2022 7:25:08 PDT by Tacos Aquino M.D. /[id number]
== END 2022-01-03 10:40 | disposition home or self-care (01) ==
LOC: MEDSUR 09:24 → ED 09:24 → MEDSUR 19:15
PROVIDERS: ADMIT Internal Medicine; ATTEND Internal Medicine